=== PATIENT | female | born 1995 | race Caucasian/White ===

== ENCOUNTER 2018-08-15 09:44 | Outpatient (CLI) | payer OTHER, SELFPAY ==
[2018-08-15 11:22] LABS: FREE T4 0.95 ng/dL (0.76-1.46); TSH 1.49 uIU/mL (0.358-3.74)
[2018-08-15 12:08] LABS: Vitamin B12 671 pg/mL (193-986)
[2018-08-15 22:26] LABS: T3, Total 140 ng/dl (97-169)
[2018-08-17 00:07] LABS: Vitamin D 25 Total 34.9 ng/ml (30-100)
== END 2018-08-15 10:04 ==
PROVIDERS: PCP Nurse Practitioner; Visit Provider Nurse Practitioner Family
DX: F31.81 Bipolar II disorder (principal); Z79.899 Other long term (current) drug therapy; E03.9 Hypothyroidism, unspecified; Z13.21 Encounter for screening for nutritional disorder
CPT/HCPCS: 36415; 82306; 82607; 84439; 84443; 84480

== ENCOUNTER 2018-10-01 13:46 | Outpatient (REF) | payer OTHER, SELFPAY | END 2018-10-01 14:06 | LOC: LBN 13:46 | PROVIDERS: PCP Nurse Practitioner; Visit Provider Nurse Practitioner | DX: J06.9 Acute upper respiratory infection, unspecified (principal) | CPT/HCPCS: 87449 ==

== ENCOUNTER 2018-11-14 08:57 | Outpatient (CLI) | payer OTHER, SELFPAY ==
[2018-11-14 09:55] LABS: FREE T4 0.89 ng/dL (0.76-1.46)
== END 2018-11-14 09:17 ==
PROVIDERS: PCP Nurse Practitioner; Visit Provider Nurse Practitioner Women's Health
DX: O99.281 Endocrine, nutritional and metabolic diseases complicating pregnancy, first trimester (principal); E03.9 Hypothyroidism, unspecified
CPT/HCPCS: 36415; 84439; 84443

== ENCOUNTER 2018-11-23 12:39 | Outpatient (CLI) | payer OTHER, SELFPAY | END 2018-11-23 12:59 | PROVIDERS: PCP Nurse Practitioner; Visit Provider Advanced Practice Midwife | DX: Z34.90 Encounter for supervision of normal pregnancy, unspecified, unspecified trimester (principal); R10.9 Unspecified abdominal pain | CPT/HCPCS: 36415; 86850; 86900; 86901; 84702 ==

== ENCOUNTER 2018-12-04 15:15 | Outpatient (CLI) | payer OTHER, SELFPAY ==
[2018-12-04 15:57] LABS: Abs Immature Grans 0.01 k/cumm (0.0-0.09); Absolute Basophil Count 0.02 k/cumm (0.0-0.2); Absolute Eosinophil Count 0.03 k/cumm (0.0-0.7); Absolute Lymphocyte Count 1.84 k/cumm (1.2-3.4); Absolute Monocyte Count 0.33 k/cumm (0.11-0.7); Absolute Neutrophil Count 5.94 k/cumm (1.2-6.7); Basophils % 0.2; Eosinophils % 0.4; HCT 37.8 % (36.0-46.0); HGB 13.4 g/dL (12.0-15.5); Immature Grans % 0.1; Lymphocytes % 22.5; Mean Corp. HGB Concentration 35.4 g/dL (32.0-36.0); Mean Corpuscular Hemoglobin 27.9 pg (27.0-33.0); Mean Corpuscular Volume 78.8 fL (80-95); Mean Platelet Volume 10.9 fL (8.0-11.0); Neutrophils % 72.8; Platelet Count 248 x1000/uL (130-400); RBC Distribution Width 13.6 % (11.7-14.6); White Blood Cell Count 8.17 k/cumm (4.4-10.8)
[2018-12-04 16:45] LABS: TSH (W/Ref FT4) 1.68 uIU/mL (0.358-3.74)
[2018-12-06 10:32] LABS: Hepatitis C Ab w Rflx HCV PCR Negative (NEGAT)
[2018-12-06 11:26] LABS: HIV-1/2 Ag & Ab Screen Negative (NEGAT)
[2018-12-06 11:33] LABS: Hepatitis B Surface Ag Negative (NEGAT)
[2018-12-06 12:42] LABS: Varicella IgG Antibody Positive
[2018-12-06 13:02] LABS: Rubella IgG Ab (UVM) Positive
[2018-12-06 13:06] LABS: Syphilis Serology (RPR) Negative (Negative)
== END 2018-12-04 15:35 ==
PROVIDERS: PCP Nurse Practitioner; Visit Provider Advanced Practice Midwife
DX: Z34.91 Encounter for supervision of normal pregnancy, unspecified, first trimester (principal); Z01.84 Encounter for antibody response examination; Z11.4 Encounter for screening for human immunodeficiency virus [HIV]; Z11.59 Encounter for screening for other viral diseases
CPT/HCPCS: 36415; 80055; 86787; 86803; 86850; 86900; 86901; 87340; 87389; 84443; 86592; 86762

== ENCOUNTER 2018-12-04 16:10 | Outpatient (REF) | payer OTHER, SELFPAY ==
--- NOTE | 2018-12-04 14:00 | PAPFT_PTH ---
PATIENT: Tanisha Goodwin LOC: [facility] U#:[id number] AGE/SX: 23/F ROOM: RE12/04/[address]: Jane Norris CNM : 1995 BED: DIS: 12/04/2018 SPEC #: [id number] RECD: 12/04/18 17:43 STATUS: MIKE ASHRAF #: [id number] MARIANNA: 12/04/18 14:[address]: Jane Norris DEPT: [facility] Cytology RECD BY: Hailey Nelson ENTERED: 12/04/18 17:44 SP TYPE: PAPFT BALAJI DR: Loida Huang APRN Tissues: 1 - CX/ENDOCX FOR PAP SMEARS Procedures: PAP THIN PREP/UVM Screening Comments: [id number]
[2018-12-04 17:51] LABS: *AMPHETAMINES SCREEN URINE Negative (Negative); *BARBITURATES SCREEN URINE Negative (Negative); *BENZODIAZEPINES SCREEN URINE Negative (Negative); Cannabinoids THC Negative (Negative); Cocaine Screen,Urine Negative (Negative); METHADONE URINE SCREEN Negative (Negative); OPIATES URINE SCREEN Negative (Negative)
[2018-12-04 17:52] LABS: Tricyclic Antidepressants Negative (Negative)
[2018-12-06 14:30] LABS: Chlamydia Result Negative; GC Result Negative; Specimen Description CERVIX
[2018-12-08 17:08] LABS: Buprenorphine Negative; Norbuprenorphine Negative
== END 2018-12-04 16:30 ==
LOC: LBN 16:10
PROVIDERS: PCP Nurse Practitioner; Visit Provider Advanced Practice Midwife
DX: Z34.91 Encounter for supervision of normal pregnancy, unspecified, first trimester (principal); Z11.3 Encounter for screening for infections with a predominantly sexual mode of transmission; Z12.4 Encounter for screening for malignant neoplasm of cervix
CPT/HCPCS: 80307; 87491; 87591; 88142

== ENCOUNTER 2019-01-24 09:10 | Outpatient (CLI) | payer OTHER, SELFPAY ==
[2019-01-24 10:58] LABS: FREE T4 1.21 ng/dL (0.76-1.46); TSH 1.71 uIU/mL (0.358-3.74)
[2019-01-25 17:38] LABS: Cigarette smoking status non-smoker; GA used in risk estimate Dates estimate; INHIBIN 327 pg/mL; IVF Pregnancy No; Initial or repeat testing Initial testing; Insulin dependent diabetes No; Maternal Weight 179 lbs; Number of Fetuses 1; Physician Phone Number 802-748-7300; Prev Down(T21)/Trisomy Pregnan No; Prev Pregnancy w/NTD No; RECOMMENDED FOLLOW UP None.; Results Summary Normal risk; hCG, TOTAL 113.3 IU/mL; hCG, TOTAL MoM 3.25 MoM; uE3 0.78 ng/mL
== END 2019-01-24 09:30 ==
PROVIDERS: PCP Nurse Practitioner; Visit Provider Advanced Practice Midwife
DX: E03.9 Hypothyroidism, unspecified (principal); Z34.91 Encounter for supervision of normal pregnancy, unspecified, first trimester; Z36.89 Encounter for other specified antenatal screening
CPT/HCPCS: 81511; 84439; 84443

== ENCOUNTER 2019-01-27 15:10 | Emergency (ER) | payer OTHER, SELFPAY ==
[2019-01-27 15:14] VITALS: BP 115/70; PULSE 108; RESP 20; TEMP 36.7; O2SAT 97
--- NOTE | 2019-01-27 15:52 | W.ED.GENAD ---
Discharge Plan Disposition Patient Disposition: HOME Condition: Fair Discharge Details Chief Complaint: BILINGUAL LEGAL ASSISTANT Clinical Impression: Vaginal bleeding before 22 weeks gestation Primary Care Provider: Loida Huang ED Provider: Tiffanie King Home Meds and New Rx's Prescriptions: Continued levothyroxine [Synthroid] 50 mcg tablet 50 mcg PO DAILY Qty: 90 RF: 3 prenat.vits,kenn,aat-mljo-bwegl tablet 1 tab PO DAILY Qty: 90 RF: 6 sertraline 50 mg tablet 50 mg PO DAILY RF: 0 Discharge Instructions Additional Instructions: Your exam and heart rate are reassuring today. Please encourage hydration. Do not place anything intravaginally. Follow-up with BILINGUAL LEGAL ASSISTANT next week for reevaluation. If you develop cramping, fever/chills, increased bleeding or other new/worsening symptoms please seek care urgently once again. Referrals: Brooke Morales MD [ [facility] STAFF PHYSICIAN] - Discharge Data Discharge Date/Time-TO BE ENTERED AT DEPARTURE: 01/27/19 16:28 Medical Decision Making Patient 21-year-old female presenting today for bleeding in second trimester of . Patient is currently 16 weeks gestation, confirmed with initial dating ultrasound. Patient reports that she had bleeding last week that only lasted a few hours. Was evaluated by BILINGUAL LEGAL ASSISTANT who advised nothing intravaginally for the next week. However, patient did have intercourse today after which she began bleeding. She reports that she has had the current pattern for the past hour, there is a thin line of blood noted on the pad currently. She reports a prior to that, she had placed 2 pieces of toilet paper in her underwear and went through this x2. On exam, her abdomen is soft and nontender. She does not have a large quantity of blood noted. heart rate [address] Watt. He advised vaginal rest. He reiterated with the patient is been told last week to not insert anything vaginally. Patient will follow up with them this week. She and I discussed strict return precautions, particular she has worsening bleeding. All of her questions and concerns were addressed and she is in agreement this plan.. HPI General Mode of arrival: ambulatory. Date/Time Provider Initiated Documentation: 01/27/19 15:51. Limitations to Documentation: no limitations. Information obtained by: patient and RN notes reviewed. HPI Narrative: Patient is a 23 year old female, accompanied by significant other, presenting with concern for vaginal bleeding at 16 week gestation. States that bleeding began this afternoon after intercourse. States she had bleeding 5 days ago and was evaluated by MANAGER OF SUSTAINABILITY who advised abstaining from vaginal intercourse x 1 week. Denies cramping. G1PO. No fevers/chills. Had confirmatory US showing intravaginal fetus. Related Data Home Medications Medication Instructions Recorded Confirmed 1 tab PO DAILY #90 tab 11/08/18 01/24/19 vitamin,calcium,jkjkroha-zkxo-aoqzz acid tablet levothyroxine 50 mcg tablet 50 mcg PO DAILY #90 tab 12/27/18 01/24/19 sertraline 50 mg tablet 50 mg PO DAILY tab 01/15/19 01/24/19 Previous Rx's Medication Instructions Recorded 1 tab PO DAILY #90 tab 11/08/18 vitamin,calcium,zkvjrpts-aqqd-jqluy acid tablet levothyroxine 50 mcg tablet 50 mcg PO DAILY #90 tab 12/27/18 Allergies Allergy/AdvReac Type Severity Reaction Status Date / Time lamotrigine [From Lamictal] AdvReac Skin Rash Verified 01/24/19 08:10 General Stated Complaint: BILINGUAL LEGAL ASSISTANT OLIVE: 3 Review of Systems Constitutional Reports as per HPI, Denies chills, Reports fatigue, Denies fever(s) and Denies headache(s) ENT Denies headache(s) Cardiovascular Reports as per HPI, Denies chest pain and Denies dyspnea Respiratory Reports as per HPI, Denies cough and Denies dyspnea Gastrointestinal Reports as per HPI, Denies abdominal pain, Denies loose stools, Denies nausea and Denies vomiting Genitourinary Reports as per HPI and Reports abnormal vaginal bleeding Musculoskeletal Reports as per HPI and Denies back pain Integumentary/Breasts Reports as per HPI and Denies rash Neurologic Reports as per HPI and Denies headache(s) Endocrine Reports fatigue [facility] Medical History Seasonal affective disorder (Chronic) Bipolar 1 disorder (Chronic) Bipolar disorder (Chronic) Vitamin B12 deficiency (non anemic) (Acute) Hyperglycemia (Acute) Irritable bowel syndrome (Chronic) Depressive disorder (Acute) Anxiety (Chronic) Hypothyroidism (Chronic) Insomnia (Acute) Ovarian cyst (Acute) Surgical History History of removal of ovarian cyst (Acute) Social History Smoking/Tobacco Use Status: Former Tobacco Use Alcohol Intake: former Details: mixed drinks (rum with mountain dew) Substance use type: does not use Caregiver/Support person: No Housing: apartment Communication Needs: None 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 [employer] What type of physical activity do you participate in: walking Seatbelt use: always Helmet use: Yes Drive intox or ride w/intox tour driver: No Working smoke detector in home: Yes Fire extinguisher in home: No Carbon monox detector in home: Yes Firearms in home: No Do you feel safe at home: Yes Do you feel safe in your relationship?: Yes Female Reproductive History Menstrual control method: progestin IUCD History History 1 Para 0 Hx # Term Pregnancies 0 Multiple births 0 Hx # Pregnancies 0 Ectopic pregnancies 0 AB induced 0 Hx Number of Living Children 0 AB spontaneous 0 Exam Const General: cooperative, healthy appearing, comfortable, no acute distress and well developed Nutritional Appearance: well nourished and overweight Orientation: alert and awake HENMT Head: normal to inspection Mouth: moist mucous membranes Resp Effort & Inspection: normal respiratory effort, able to speak in complete sentences and no respiratory distress Auscultation: clear to auscultation bilaterally, no rales, no rhonchi and no wheezes Cardio Rate: regular rate Rhythm: regular rhythm Heart Sounds: S1 normal and S2 normal GI Inspection: normal to inspection and non-distended Palpation: soft, no hepatosplenomegaly, not firm, no guarding, not rigid and nontender Percussion: normal to percussion Auscultation: normal bowel sounds Back/Spine/Pelvis Back: no CVA tenderness Skin General skin exam: no rashes or lesions noted Trauma: no lacerations or abrasions Neuro General: alert and awake Cognition: normal cognition Speech: speech normal Gait: normal gait Extrem General: no pedal edema, no calf tenderness and normal gait Psych Appearance: grossly normal and well kempt Mental Status: mental status grossly normal Speech and Movement: speech and movement normal Course Vital Signs Temperature 36.7 C 01/27/19 15:14 Pulse 108 H 01/27/19 15:14 Respiratory Rate 20 01/27/19 15:14 Blood Pressure 115/70 01/27/19 15:14 Pulse Oximetry 97 01/27/19 15:14 Temperature 36.7 C 01/27/19 15:14 Temperature Source Temporal Artery Scan 01/27/19 15:14 Pulse 108 H 01/27/19 15:14 Respiratory Rate 20 01/27/19 15:14 Respiratory Effort Non-Labored 01/27/19 15:25 Blood Pressure 115/70 01/27/19 15:14 Pulse Oximetry 97 01/27/19 15:14 Oxygen Delivery Method Room Air 01/27/19 15:14 Oxygen Flow Rate 0 01/27/19 15:14 Pain Level 0 01/27/19 15:22
--- NOTE | 2019-01-27 16:05 | ED.GENADUL_ITS ---
Discharge Plan Disposition Patient Disposition: HOME Condition: Fair Discharge Details Chief Complaint: GROUNDSKEEPER PORTER Clinical Impression: Vaginal bleeding before 22 weeks gestation Primary Care Provider: Loida Huang ED Provider: Tiffanie King Home Meds and New Rx's Prescriptions: Continued levothyroxine [Synthroid] 50 mcg tablet 50 mcg PO DAILY Qty: 90 RF: 3 prenat.vits,kenn,rgo-cnmi-rjlwk tablet 1 tab PO DAILY Qty: 90 RF: 6 sertraline 50 mg tablet 50 mg PO DAILY RF: 0 Discharge Instructions Additional Instructions: Your exam and heart rate are reassuring today. Please encourage hydration. Do not place anything intravaginally. Follow-up with GROUNDSKEEPER PORTER next week for reevaluation. If you develop cramping, fever/chills, increased bleeding or other new/worsening symptoms please seek care urgently once again. Referrals: Brooke Morales MD [ [facility] STAFF PHYSICIAN] - Discharge Data Discharge Date/Time-TO BE ENTERED AT DEPARTURE: 01/27/19 16:28 Medical Decision Making Patient 21-year-old female presenting today for bleeding in second trimester of . Patient is currently 16 weeks gestation, confirmed with initial dating ultrasound. Patient reports that she had bleeding last week that only l asted a few hours. Was evaluated by GROUNDSKEEPER PORTER who advised nothing intravaginally for the next week. However, patient did have intercourse today after which she began bleeding. She reports that she has had the current pattern for the past hour, there is a thin line of blood noted on the pad currently. She reports a prior to that, she had placed 2 pieces of toilet paper in her underwear and went through this x2. On exam, her abdomen is soft and nontender. She does not have a large quantity of blood noted. heart rate [address] Watt. He advised vaginal rest. He reiterated with the patient is been told last week to not insert anything vaginally. Patient will follow up with them this week. She and I discussed strict return precautions, particular she has worsening bleeding. All of her questions and concerns were addressed and she is in agreement this plan.. HPI General Mode of arrival: ambulatory . Date/Time Provider Initiated Documentation: 01/27/19 15:51 . Limitations to Documentation: no limitations . Information obtained by: patient and RN notes reviewed . HPI Narrative: Patient is a 23 year old female, accompanied by significant other, presenting with concern for vaginal bleeding at 16 week gestation. States that bleeding began this afternoon after intercourse. States she had bleeding 5 days ago and was evaluated by TEMPORARY RECEPTIONIST who advised abstaining from vaginal intercourse x 1 week. Denies cramping. G1PO. No fevers/chills. Had confirmatory US showing intravaginal fetus. Related Data Home Medications Medication Instructions Recorded Confirmed 1 tab PO DAILY #90 tab 11/08/18 01/24/19 vitamin,calcium,rtvhkdwq-olgv-hnlck acid tablet levothyroxine 50 mcg tablet 50 mcg PO DAILY #90 tab 12/27/18 01/24/19 sertraline 50 mg tablet 50 mg PO DAILY tab 01/15/19 01/24/19 Previous Rx's Medication Instructions Recorded 1 tab PO DAILY #90 tab 11/08/18 vitamin,calcium,zstsxeng-qsru-zdymw acid tablet levothyroxine 50 mcg tablet 50 mcg PO DAILY #90 tab 12/27/18 Allergies Allergy/AdvReac Type Severity Reaction Status Date / Time lamotrigine [From Lamictal] AdvReac Skin Rash Verified 01/24/19 08:10 General Stated Complaint: GROUNDSKEEPER PORTER OLIVE: 3 Review of Systems Constitutional Reports as per HPI, Denies chills, Reports fatigue, Denies fever(s) and Denies headache(s) ENT Denies headache(s) Cardiovascular Reports as per HPI, Denies chest pain and Denies dyspnea Respiratory Reports as per HPI, Denies cough and Denies dyspnea Gastrointestinal Reports as per HPI, Denies abdominal pain, Denies loose stools, Denies nausea and Denies vomiting Genitourinary Reports as per HPI and Reports abnormal vaginal bleeding Musculoskeletal Reports as per HPI and Denies back pain Integumentary/Breasts Reports as per HPI and Denies rash Neurologic Reports as per HPI and Denies headache(s) Endocrine Reports fatigue [facility] Medical History Seasonal affective disorder (Chronic) Bipolar 1 disorder (Chronic) Bipolar disorder (Chronic) Vitamin B12 deficiency (non anemic) (Acute) Hyperglycemia (Acute) Irritable bowel syndrome (Chronic) Depressive disorder (Acute) Anxiety (Chronic) Hypothyroidism (Chronic) Insomnia (Acute) Ovarian cyst (Acute) Surgical History History of removal of ovarian cyst (Acute) Social History Smoking/Tobacco Use Status: Former Tobacco Use Alcohol Intake: former Details: mixed drinks (rum with mountain dew) Substance use type: does not use Caregiver/Support person: No Housing: apartment Communication Needs: None 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 [employer] What type of physical activity do you participate in: walking Seatbelt use: always Helmet use: Yes Drive intox or ride w/intox helper/driver: No Working smoke detector in home: Yes Fire extinguisher in home: No Carbon monox detector in home: Yes Firearms in home: No Do you feel safe at home: Yes Do you feel safe in your relationship?: Yes Female Reproductive History Menstrual control method: progestin IUCD History History 1 Para 0 Hx # Term Pregnancies 0 Multiple births 0 Hx # Pregnancies 0 Ectopic pregnancies 0 AB induced 0 Hx Number of Living Children 0 AB spontaneous 0 Exam Const General: cooperative, healthy appearing, comfortable, no acute distress and well developed Nutritional Appearance: well nourished and overweight Orientation: alert and awake HENMT Head: normal to inspection Mouth: moist mucous membranes Resp Effort & Inspection: normal respiratory effort, able to speak in complete sentences and no respiratory distress Auscultation: clear to auscultation bilaterally, no rales, no rhonchi and no wheezes Cardio Rate: regular rate Rhythm: regular rhythm Heart Sounds: S1 normal and S2 normal GI Inspection: normal to inspection and non-distended Palpation: soft, no hepatosplenomegaly, not firm, no guarding, not rigid and nontender Percussion: normal to percussion Auscultation: normal bowel sounds Back/Spine/Pelvis Back: no CVA tenderness Skin General skin exam: no rashes or lesions noted Trauma: no lacerations or abrasions Neuro General: alert and awake Cognition: normal cognition Speech: speech normal Gait: normal gait Extrem General: no pedal edema, no calf tenderness and normal gait Psych Appearance: grossly normal and well kempt Mental Status: mental status grossly normal Speech and Movement: speech and movement normal Course Vital Signs Temperature 36.7 C 01/27/19 15:14 Pulse 108 H 01/27/19 15:14 Respiratory Rate 20 01/27/19 15:14 Blood Pressure 115/70 01/27/19 15:14 Pulse Oximetry 97 01/27/19 15:14 Temperature 36.7 C 01/27/19 15:14 Temperature Source Temporal Artery Scan 01/27/19 15:14 Pulse 108 H 01/27/19 15:14 Respiratory Rate 20 01/27/19 15:14 Respiratory Effort Non-Labored 01/27/19 15:25 Blood Pressure 115/70 01/27/19 15:14 Pulse Oximetry 97 01/27/19 15:14 Oxygen Delivery Method Room Air 01/27/19 15:14 Oxygen Flow Rate 0 01/27/19 15:14 Pain Level 0 01/27/19 15:22
== END 2019-01-27 16:28 | disposition home or self-care (01) ==
PROVIDERS: Emergency Provider Physician Assistant; PCP Nurse Practitioner
DX: O20.9 Hemorrhage in early pregnancy, unspecified (principal); Z3A.16 16 weeks gestation of pregnancy
CPT/HCPCS: 99283

== ENCOUNTER 2019-02-12 00:41 | Outpatient (CLI) | payer OTHER, SELFPAY ==
--- NOTE | 2019-02-12 09:30 | DI.US_ITS ---
SYMPTOMS/DIAGNOSIS: SURVEY, Z34.90 OB ULTRASOUND: Predicted Gestational Age: Indication/History: 18+2 Wks Range: 17+2 to 19+2 Prior US done on: Determined by: First US LMP History EDC by prior US: 07/14/19 For multiple gestations: Baby PLACENTA: Grade: I Location: X Anterior Posterior PRESENTATION: RT LT LOW LYING PREVIA Cephalic X Trans (Head RT LT ) Varied Breech BIOMETRY: Anatomy Identified: BPD: mm wks 4 chamber Heart X Heart Rate 160 BPM HC: mm wks LVOT X Post Fossa X AC: 124 mm 18 wks RVOT X Ventricles X FL: 26 mm 18 wks Stomach X Nose X Bladder X Lips X Cisterna Magna: 2.4 mm CI: Kidneys X Palate X Cerebellum: 1.93 mm 3- vessel cord X Spine X EFW: grms % Cord Insertion X NS= not seen Composite Age (US) wks Many abnormalities cannot be diagnosed. A normal exam does not exclude congenital abnormality. EDC by US Amniotic Fluid Index: Normal RUQ: LUQ: RLQ: LLQ: Total: cm Biophysical Profile: Score 0/2 SERG (>2cm) Respirations (>30 sec) Body flexion/extension Extremity flexion/extension TOTAL SCORE COMMENTS: The placenta is anterior. The fetus is in cephalic position. The head was difficult to visualize and adequate measurements were unable to be obtained. The abdominal circumference and femur length correspond to 18 weeks. The amount of amniotic fluid appears normal. Aside from the head, no abnormalities are identified. The patient is scheduled to return on January, for reevaluation of the head.
== END 2019-02-12 01:01 ==
PROVIDERS: PCP Nurse Practitioner; Visit Provider Advanced Practice Midwife
DX: Z34.92 Encounter for supervision of normal pregnancy, unspecified, second trimester (principal)
CPT/HCPCS: 76815

== ENCOUNTER 2019-02-18 01:43 | Outpatient (CLI) | payer OTHER, SELFPAY ==
--- NOTE | 2019-02-18 11:00 | DI.US_ITS ---
SYMPTOM/DIAGNOSIS: F/U TO SURVEY, CHECK HEAD OB ULTRASOUND: Comparison is made with 12 February 2019. The fetus is in breech position. The placenta is anterior. The amount of amniotic fluid appears normal. The brain and face were better seen on today's exam and no abnormalities are visible. Predicted Gestational Age: Indication/History: 19 +1 Wks Range: 18 +1 to 20 +1 Prior US done on: Determined by: First US LMP History EDC by prior US: 07/14/19 For multiple gestations: Baby PLACENTA: Grade: 0-I Location: Anterior PRESENTATION: RT LT LOW LYING PREVIA Cephalic Trans (Head RT LT ) Varied Breech XX BIOMETRY: Anatomy Identified: BPD: 42 mm 18 N+4 wks 4 chamber Heart Heart Rate 147 BPM HC: 160 mm 18 +6 wks LVOT Post Fossa XX AC: mm wks RVOT Ventricles XX FL: mm wks Stomach Nose XX Bladder Lips XX Cisterna Magna: 4.1 mm CI: 78 Kidneys Palate Cerebellum: 1.85 mm 3 vessel cord Spine EFW: grms % Cord Insertion NS= not seen Composite Age (US) wks Many abnormalities cannot be diagnosed. A normal exam does not exclude congenital abnormality. EDC by US Amniotic Fluid Index: Normal COMMENTS: RUQ: LUQ: RLQ: LLQ: Total: cm Biophysical Profile: Score 0/2 SERG (>2cm) Respirations (>30 sec) Body flexion/extension Extremity flexion/extension TOTAL SCORE
== END 2019-02-18 02:03 ==
PROVIDERS: PCP Nurse Practitioner; Visit Provider Advanced Practice Midwife
DX: Z34.92 Encounter for supervision of normal pregnancy, unspecified, second trimester (principal); Z36.2 Encounter for other antenatal screening follow-up
CPT/HCPCS: 76815

== ENCOUNTER 2019-02-21 12:06 | Outpatient (CLI) | payer OTHER, SELFPAY ==
[2019-02-27 15:12] LABS: Result Summary NEGATIVE; Specimen WB Whole Blood
[2019-03-01 15:24] LABS: Specimen WB Whole Blood
== END 2019-02-21 12:26 ==
PROVIDERS: PCP Nurse Practitioner; Visit Provider Advanced Practice Midwife
DX: Z34.92 Encounter for supervision of normal pregnancy, unspecified, second trimester (principal); Z36.89 Encounter for other specified antenatal screening
CPT/HCPCS: 36415; 81329; 81220

== ENCOUNTER 2019-03-12 12:59 | Outpatient (CLI) | payer OTHER, SELFPAY ==
[2019-03-12 14:25] LABS: TSH 1.66 uIU/mL (0.358-3.74)
== END 2019-03-12 13:19 ==
PROVIDERS: PCP Nurse Practitioner; Visit Provider Advanced Practice Midwife
DX: E03.9 Hypothyroidism, unspecified (principal)
CPT/HCPCS: 36415; 84436; 84443

== ENCOUNTER 2019-04-23 08:40 | Outpatient (CLI) | payer OTHER, SELFPAY ==
[2019-04-23 10:03] LABS: HCT 33.7 % (36.0-46.0); HGB 11.6 g/dL (12.0-15.5); Mean Corp. HGB Concentration 34.4 g/dL (32.0-36.0); Mean Corpuscular Hemoglobin 28.7 pg (27.0-33.0); Mean Corpuscular Volume 83.4 fL (80-95); Mean Platelet Volume 10.4 fL (8.0-11.0); Platelet Count 203 x1000/uL (130-400); RBC 4.04 m/cumm (4.00-5.20); RBC Distribution Width 13.7 % (11.7-14.6); White Blood Cell Count 7.48 k/cumm (4.4-10.8)
[2019-04-23 10:10] LABS: Glucose,1 Hr (Glucola) 125 mg/dL (80-140)
[2019-04-23 11:16] LABS: TSH (W/Ref FT4) 2.47 uIU/mL (0.36-3.74)
== END 2019-04-23 09:00 ==
PROVIDERS: Advanced Practice Midwife; PCP Nurse Practitioner; Visit Provider Advanced Practice Midwife
DX: Z34.93 Encounter for supervision of normal pregnancy, unspecified, third trimester (principal)
CPT/HCPCS: 36415; 82950; 85027; 84443

== ENCOUNTER 2019-05-08 00:48 | Outpatient (CLI) | payer OTHER, SELFPAY ==
--- NOTE | 2019-05-08 12:18 | DI.US_ITS ---
SYMPTOMS/DIAGNOSIS: GROWTH AND AMNIOTIC FLUID INDEX, 2ND AND 3RD TRIMESTER BLEEDING, Z34.90 OB ULTRASOUND: Predicted Gestational Age: Indication/History: 30+3 Wks Range: 29+3 to 31+3 Prior US done on: Determined by: First US LMP History EDC by prior US: 07/14/19 For multiple gestations: Baby PLACENTA: Grade: I-II Location: X Anterior Posterior PRESENTATION: RT X LT LOW LYING PREVIA X Cephalic Trans (Head RT LT ) Varied Breech BIOMETRY: Anatomy Identified: BPD: 81 mm 32+2 wks 4 chamber Heart Heart Rate 158 BPM HC: 294 mm 32+3 wks LVOT Post Fossa AC: 283 mm 32+2 wks RVOT Ventricles FL: 60 mm 31+1 wks Stomach Nose Bladder Lips Cisterna Magna: mm CI: 82 Kidneys Palate Cerebellum: mm 3 vessel cord Spine EFW: 1873 grms 87% Cord Insertion NS= not seen Composite Age (US) 32 wks Many abnormalities cannot be diagnosed. A normal exam does not exclude congenital abnormality. EDC by US: 07/03/19 Amniotic Fluid Index: Normal COMMENTS: Placental tip 7.8 cm from internal os the cervix. RUQ: 7.09 LUQ: 6.17 RLQ: 1.57 LLQ: 2.60 Total: 17.4 cm Biophysical Profile: Score 0/2 SERG (>2cm) Respirations (>30 sec) Body flexion/extension Extremity flexion/extension TOTAL SCORE RADIOLOGIST COMMENTS: Comparison is made with January,. The fetus is in cephalic position. The placenta is anterior. There is no evidence of placenta previa. The biometric measurements correspond to 32 weeks, which is slightly above the normal range. The estimated weight is 1873 g, corresponding to the 87th percentile. The amniotic fluid index is normal at 17.4. IMPRESSION: Appropriate interval growth. No abnormality of the placenta.
== END 2019-05-08 01:08 ==
PROVIDERS: PCP Nurse Practitioner; Visit Provider Advanced Practice Midwife
DX: O46.93 Antepartum hemorrhage, unspecified, third trimester (principal)
CPT/HCPCS: 76815

== ENCOUNTER 2019-06-18 19:05 | Outpatient (REF) | payer OTHER, SELFPAY ==
[2019-06-18 15:38] LABS: *AMPHETAMINES SCREEN URINE Negative (Negative); *BARBITURATES SCREEN URINE Negative (Negative); *BENZODIAZEPINES SCREEN URINE Negative (Negative); Cannabinoids THC Negative (Negative); Cocaine Screen,Urine Negative (Negative); METHADONE URINE SCREEN Negative (Negative); OPIATES URINE SCREEN Negative (Negative)
[2019-06-18 15:40] LABS: Tricyclic Antidepressants Negative (Negative)
[2019-06-30 07:48] LABS: Buprenorphine Negative
== END 2019-06-18 19:25 ==
LOC: LBN 19:05
PROVIDERS: PCP Nurse Practitioner; Visit Provider Advanced Practice Midwife
DX: Z34.93 Encounter for supervision of normal pregnancy, unspecified, third trimester (principal); Z36.85 Encounter for antenatal screening for Streptococcus B
CPT/HCPCS: 80307; 87081

== ENCOUNTER 2019-06-27 18:16 | Emergency (ER) | payer OTHER, SELFPAY ==
--- NOTE | 2019-06-27 18:21 | ED.GENADUL_ITS ---
Discharge Plan Disposition Patient Disposition: HOME Condition: Improving Discharge Details Clinical Impression: Laceration of left thumb Primary Care Provider: Loida Huang ED Provider: Asher Barker Home Meds and New Rx's Prescriptions: Continued levothyroxine [Synthroid] 50 mcg tablet 50 mcg PO DAILY Qty: 90 RF: 3 prenat.vits,kenn,ytt-bvnx-bwbaf tablet 1 tab PO DAILY Qty: 90 RF: 6 Blood Builder tablet 1 tab PO DAILY Qty: 60 RF: 0 sertraline 50 mg tablet 50 mg PO DAILY RF: 0 Discharge Instructions Instructions: Laceration (ED) Additional Instructions: Leave dressing in place for 48 hours. Then may replace with Band-Aid. Steri-Strips and tissue adhesive will wear off in approximately 7 to 10 days time. Return to the emergency department for any acute concern. Medical Decision Making 23-year-old female with small laceration to left thumb. Tetanus up-to-date. She is in the third trimester but no other complaints. Repaired with tissue adhesive and Steri-Strips. She stable and improved. Appropriate discharged home. HPI General Mode of arrival: ambulatory . Date/Time Provider Initiated Documentation: 06/27/19 18:21 . Limitations to Documentation: no limitations . Information obtained by: patient . History of Present Illness 23 year old F presents to the emergency department with the chief complaint of Left thumb laceration, bleeding controlled, described as mild, Quality is described as constant, and is localized to the left and upper extremity. Patient reports no radiation. Patient started experiencing this minute(s) and it has been constant. No relieving factors improve symptom(s), No exacerbating factors reported . Patient notes no other symptoms.. Patient did receive the following treatments prior to arrival, none Related Data Home Medications Medication Instructions Recorded Confirmed prenat.vits,kenn,ioa-lxca-xdiys 1 tab PO DAILY #90 tab 11/08/18 06/18/19 levothyroxine 50 mcg tablet 50 mcg PO DAILY #90 tab 12/27/18 06/18/19 sertraline 50 mg tablet 50 mg PO DAILY tab 01/15/19 06/18/19 Blood Builder 1 tab PO DAILY #60 tab 04/23/19 06/18/19 Previous Rx's Medication Instructions Recorded prenat.vits,kenn,ith-jkhr-mlgnl 1 tab PO DAILY #90 tab 11/08/18 levothyroxine 50 mcg tablet 50 mcg PO DAILY #90 tab 12/27/18 Blood Builder 1 tab PO DAILY #60 tab 04/23/19 Allergies Allergy/AdvReac Type Severity Reaction Status Date / Time lamotrigine [From Lamictal] AdvReac Skin Rash Verified 06/25/19 11:39 General OLIVE: 3 Review of Systems Narrative: Third trimester . Tetanus up-to-date. No other complaints. [facility] Medical History Anxiety (Chronic) Bipolar 1 disorder (Chronic) Bipolar disorder (Chronic) 11/15/18 pt off mraylar due to pregnacy per Merari Bernal Depressive disorder (Acute) Hyperglycemia (Acute) Hypothyroidism (Chronic) diagnosed age 19 after she gained a lot of weight with one of her bipolar medication Insomnia (Acute) Irritable bowel syndrome (Chronic) Ovarian cyst (Acute) Seasonal affective disorder (Chronic) Vitamin B12 deficiency (non anemic) (Acute) Surgical History History of removal of ovarian cyst (Acute) Family History Paternal Grandfather Hypertension Father Hypercholesterolemia Hypertension Mother Thyroid disorder Hypertension Hypercholesterolemia Immunodeficiency disorder Maternal Grandmother Thyroid disorder Heart disease Paternal Grandmother Diabetes Depression Social History Smoking/Tobacco Use Status: Former Tobacco Use Alcohol Intake: former Details: mixed drinks (rum with mountain dew) Substance use type: does not use Caregiver/Support person: No Housing: apartment Communication Needs: None 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 [employer] What type of physical activity do you participate in: walking Seatbelt use: always Helmet use: Yes Drive intox or ride w/intox trash truck driver: No Working smoke detector in home: Yes Fire extinguisher in home: No Carbon monox detector in home: Yes Firearms in home: No Do you feel safe at home: Yes Do you feel safe in your relationship?: Yes Female Reproductive History Menstrual control method: progestin IUCD History History 1 Para 0 Hx # Term Pregnancies 0 Multiple births 0 Hx # Pregnancies 0 Ectopic pregnancies 0 AB induced 0 Hx Number of Living Children 0 AB spontaneous 0 Exam Narrative Exam Narrative: GEN: awake, alert, oriented 3. Pleasant, well groomed, inte ractive. HEAD: Normocephalic, atraumatic ENT: Mucous membranes moist, oropharynx unremarkable, External ear exam unremarkable EYES: PERRL, EOMI NECK: Full ROM, no WILLI, no menigismus ABDOMEN: Gravid EXT: Left thumb with 1 cm shallow laceration that does not penetrate through the depth of the dermis. This located on the lateral aspect of the thumb without involvement of the nailbed. Full ROM, no edema, no rash Neuro: Grossly normal neurologic exam, conversant, interactive. Psych: Speech fluent, thoughts congruent, affect normal
[2019-06-27 18:24] VITALS: BP 136/90; PULSE 109; RESP 16; TEMP 37.4; O2SAT 98
[2019-06-27 18:31] VITALS: BP 129/80
== END 2019-06-27 18:35 | disposition home or self-care (01) ==
PROVIDERS: Emergency Provider Emergency Medicine; PCP Nurse Practitioner
DX: S61.012A Laceration without foreign body of left thumb without damage to nail, initial encounter; W26.0XXA Contact with knife, initial encounter; Z3A.37 37 weeks gestation of pregnancy; Z33.1 Pregnant state, incidental
CPT/HCPCS: 12001

== ENCOUNTER 2019-07-07 10:39 | Observation (INO) | payer OTHER, BC, SELFPAY | END 2019-07-07 12:20 | disposition home or self-care (01) | PROVIDERS: Admitting Provider Advanced Practice Midwife; PCP Nurse Practitioner; Visit Provider Advanced Practice Midwife | DX: O47.1 False labor at or after 37 completed weeks of gestation (principal); Z03.71 Encounter for suspected problem with amniotic cavity and membrane ruled out; O99.343 Other mental disorders complicating pregnancy, third trimester; O99.283 Endocrine, nutritional and metabolic diseases complicating pregnancy, third trimester; F41.8 Other specified anxiety disorders; E03.9 Hypothyroidism, unspecified | CPT/HCPCS: G0378 ==

== ENCOUNTER 2019-07-10 11:14 | Outpatient (CLI) | payer OTHER, BC, SELFPAY ==
[2019-07-10 12:04] LABS: HCT 36.2 % (36.0-46.0); HGB 12.6 g/dL (12.0-15.5); Mean Corp. HGB Concentration 34.8 g/dL (32.0-36.0); Mean Corpuscular Hemoglobin 28.4 pg (27.0-33.0); Mean Corpuscular Volume 81.7 fL (80-95); Platelet Count 229 x1000/uL (130-400); RBC 4.43 m/cumm (4.00-5.20); RBC Distribution Width 14.4 % (11.7-14.6)
[2019-07-10 13:50] LABS: COMMENT (LAB VIEW ONLY) 34.18 mg/dL; Prot/Crea Ur Ratio 0.49
[2019-07-10 14:01] LABS: ALT 16 U/L (14-59); AST 14 U/L (15-37); Albumin 2.8 g/dL (3.4-5.0); Alkaline Phosphatase 146 U/L (46-116); Anion Gap 10.3 mmol/L (3-11); BUN 8 mg/dL (7-18); Bilirubin, Total 0.8 mg/dL (0.2-1.0); CO2 24.7 mmol/L (21.0-32.0); CREATININE 0.62 mg/dL (0.55-1.02); Chloride 103 mmol/L (98-107); Glucose 82 mg/dL (70-100); Potassium 4.4 mmol/L (3.5-5.1); Sodium 138 mmol/L (136-145); Total Protein 6.9 g/dL (6.4-8.2); Uric Acid 2.5 mg/dL (2.6-6.0)
== END 2019-07-10 11:34 ==
PROVIDERS: PCP Nurse Practitioner; Visit Provider Advanced Practice Midwife
DX: O14.93 Unspecified pre-eclampsia, third trimester (principal)
CPT/HCPCS: 36415; 80053; 85027; 82565; 84156; 84550

== ENCOUNTER 2019-07-11 14:04 | Outpatient (CLI) | payer OTHER, BC, SELFPAY | END 2019-07-11 14:24 | PROVIDERS: PCP Nurse Practitioner; Visit Provider Advanced Practice Midwife | DX: O10.013 Pre-existing essential hypertension complicating pregnancy, third trimester (principal); Z3A.39 39 weeks gestation of pregnancy | CPT/HCPCS: 59025 ==

== ENCOUNTER 2019-07-12 08:04 | Outpatient (CLI) | payer OTHER, BC, SELFPAY ==
[2019-07-13 08:56] LABS: PROTEIN 15.2 mg/dL (0.0-11.9)
[2019-07-13 08:57] LABS: TOTAL PROTEIN,URINE TIMED 402.8 mg/24hr (0.0-149.1); Total Volume 2650 ml
== END 2019-07-12 08:24 ==
PROVIDERS: PCP Nurse Practitioner; Visit Provider Advanced Practice Midwife
DX: O13.3 Gestational [pregnancy-induced] hypertension without significant proteinuria, third trimester (principal)
CPT/HCPCS: 81050; 84155

== ENCOUNTER 2019-07-13 08:20 | Outpatient (CLI) | payer OTHER, BC, SELFPAY | END 2019-07-13 08:40 | PROVIDERS: PCP Nurse Practitioner; Visit Provider Advanced Practice Midwife | DX: O10.013 Pre-existing essential hypertension complicating pregnancy, third trimester (principal); Z3A.39 39 weeks gestation of pregnancy | CPT/HCPCS: 59025 ==

== ENCOUNTER 2019-07-15 10:54 | Outpatient (CLI) | payer OTHER, BC, SELFPAY | END 2019-07-15 11:14 | PROVIDERS: PCP Nurse Practitioner; Visit Provider Advanced Practice Midwife | DX: O13.3 Gestational [pregnancy-induced] hypertension without significant proteinuria, third trimester (principal); O48.0 Post-term pregnancy; Z3A.40 40 weeks gestation of pregnancy | CPT/HCPCS: 59025 ==

== ENCOUNTER 2019-07-15 17:38 | Inpatient (IN) | payer OTHER, BC, SELFPAY ==
[2019-07-15 18:09] LABS: HCT 33.9 % (36.0-46.0); Mean Corp. HGB Concentration 35.4 g/dL (32.0-36.0); Mean Corpuscular Hemoglobin 28.7 pg (27.0-33.0); Mean Corpuscular Volume 81.1 fL (80-95); Platelet Count 232 x1000/uL (130-400); RBC 4.18 m/cumm (4.00-5.20); RBC Distribution Width 14.4 % (11.7-14.6); White Blood Cell Count 9.03 k/cumm (4.4-10.8)
[2019-07-16] MEDS: Levothyroxine 50 MCG TAB PO (08:33)
[2019-07-16] MEDS: Normal Saline Flush 10 ML SYR IVP (08:34)
[2019-07-16] MEDS: Lactated Ringers 1,000 ML 125 ML IV (08:37)
[2019-07-16] MEDS: Penicillin G POT. 5,000,000 UNITS in Normal Saline 100 ML 200 UNITS IVPB (10:25)
[2019-07-16] MEDS: Lidocaine 1% Multi-Dose 20 ML VIAL (18:09)
[2019-07-17] MEDS: Ibuprofen 600 MG TAB PO (04:05)
[2019-07-17] MEDS: Levothyroxine 50 MCG TAB PO (06:15)
[2019-07-17 07:48] LABS: HCT 32.2 % (36.0-46.0); HGB 10.8 g/dL (12.0-15.5); Mean Corp. HGB Concentration 33.5 g/dL (32.0-36.0); Mean Corpuscular Hemoglobin 27.8 pg (27.0-33.0); Mean Platelet Volume 10.7 fL (8.0-11.0); Platelet Count 214 x1000/uL (130-400); RBC 3.88 m/cumm (4.00-5.20); RBC Distribution Width 14.5 % (11.7-14.6); White Blood Cell Count 11.26 k/cumm (4.4-10.8)
[2019-07-17] MEDS: Sertraline 50 MG TAB PO (10:21)
[2019-07-18] MEDS: Levothyroxine 50 MCG TAB PO (06:03)
== END 2019-07-18 14:30 | disposition home or self-care (01) | DRG 807 ==
PROVIDERS: Admitting Provider Advanced Practice Midwife; PCP Nurse Practitioner; Visit Provider Advanced Practice Midwife
DX: O14.04 Mild to moderate pre-eclampsia, complicating childbirth (principal); Z37.0 Single live birth; O99.824 Streptococcus B carrier state complicating childbirth; O48.0 Post-term pregnancy; O76 Abnormality in fetal heart rate and rhythm complicating labor and delivery; O99.344 Other mental disorders complicating childbirth; Z3A.40 40 weeks gestation of pregnancy; O99.284 Endocrine, nutritional and metabolic diseases complicating childbirth; F41.8 Other specified anxiety disorders; F31.9 Bipolar disorder, unspecified; E03.9 Hypothyroidism, unspecified; Z62.810 Personal history of physical and sexual abuse in childhood
CPT/HCPCS: 36415; 85027; 86850; 86900; 86901; 59200; J2540; J3490

== ENCOUNTER 2019-10-22 12:19 | Outpatient (CLI) | payer BC, SELFPAY ==
[2019-10-22 12:42] LABS: HCT 40.2 % (36.0-46.0); HGB 13.8 g/dL (12.0-15.5); Mean Corp. HGB Concentration 34.3 g/dL (32.0-36.0); Mean Corpuscular Hemoglobin 26.4 pg (27.0-33.0); Mean Platelet Volume 10.2 fL (8.0-11.0); Platelet Count 292 x1000/uL (130-400); RBC 5.22 m/cumm (4.00-5.20); RBC Distribution Width 13.9 % (11.7-14.6); White Blood Cell Count 6.06 k/cumm (4.4-10.8)
[2019-10-22 13:34] LABS: HCG Qual (Serum) Negative
[2019-10-22 13:40] LABS: ALT 27 U/L (14-59); AST 18 U/L (15-37); Albumin 3.9 g/dL (3.4-5.0); Alkaline Phosphatase 114 U/L (46-116); Bilirubin, Direct 0.18 mg/dL (0.00-0.20); Bilirubin, Total 0.9 mg/dL (0.2-1.0); TSH 2.36 uIU/mL (0.36-3.74); Total Protein 7.5 g/dL (6.4-8.2)
== END 2019-10-22 12:39 ==
PROVIDERS: Obstetrics & Gynecology; PCP Nurse Practitioner; Visit Provider Obstetrics & Gynecology
DX: R11.0 Nausea (principal)
CPT/HCPCS: 36415; 80076; 85027; 84443; 84703

== ENCOUNTER 2020-02-19 11:03 | Outpatient (REF) | payer BC, SELFPAY | END 2020-02-19 11:23 | LOC: LBN 11:03 | PROVIDERS: PCP Nurse Practitioner; Visit Provider Nurse Practitioner Adult Health | DX: E03.9 Hypothyroidism, unspecified (principal) | CPT/HCPCS: 84443 ==

== ENCOUNTER 2020-04-08 14:53 | Outpatient (REF) | payer BC, SELFPAY | END 2020-04-08 15:13 | LOC: LBN 14:53 | PROVIDERS: PCP Nurse Practitioner; Visit Provider Obstetrics & Gynecology | DX: R30.0 Dysuria (principal) | CPT/HCPCS: 87086 ==

== ENCOUNTER 2020-06-29 11:54 | Outpatient (CLI) | payer BC, SELFPAY ==
[2020-07-03 19:16] LABS: Patient Race White; SARS-CoV-2 RNA Undetected (Undetected); SARS-CoV-2 Specimen Source Nasal
== END 2020-06-29 12:14 ==
PROVIDERS: PCP Nurse Practitioner; Visit Provider Family Medicine
DX: R06.02 Shortness of breath (principal)
CPT/HCPCS: U0003

== ENCOUNTER 2020-10-13 03:21 | Outpatient (CLI) | payer BC, SELFPAY ==
[2020-10-13 12:05] LABS: HCG Quant, Pregnancy 17209 mIU/mL (1-3)
== END 2020-10-13 03:22 | disposition home or self-care (01) ==
LOC: LBO 03:22
PROVIDERS: PCP Nurse Practitioner; Visit Provider Advanced Practice Midwife
DX: O20.0 Threatened abortion (principal)
CPT/HCPCS: 36415; 84702

== ENCOUNTER 2020-10-15 02:49 | Outpatient (CLI) | payer BC, SELFPAY ==
[2020-10-15 12:57] LABS: HCG Quant, Pregnancy 28409 mIU/mL (1-3)
== END 2020-10-15 02:50 | disposition home or self-care (01) ==
LOC: LBO 02:49
PROVIDERS: PCP Nurse Practitioner; Visit Provider Advanced Practice Midwife
DX: O20.0 Threatened abortion (principal)
CPT/HCPCS: 36415; 84702

== ENCOUNTER 2020-10-23 03:06 | Outpatient (CLI) | payer BC, SELFPAY ==
--- NOTE | 2020-10-23 09:15 | DI.US_ITS ---
EXAM: US OB 1ST TRIMESTER CLINICAL HISTORY: f/u viabiity,O20.0,THREATENED MISCARRIAGE. COMPARISON: US US OB 1ST TRIMESTER from 10/16/2020 US US OB 1ST TRIMESTER from 10/16/2020 TECHNIQUE: Transabdominal Transvaginal first trimester obstetrical ultrasound performed. FINDINGS: Sonographic images demonstrate a single intrauterine gestation. A yolk sac and pole are seen. Sonographically assessed gestational age based upon crown-rump length of 1.0 cm is: 7.1 weeks Estimated date of delivery based on this ultrasound is: 10 June 2021 Estimated date of delivery based upon prior ultrasound 7.1 weeks heart rate motion is Dopplered at: 130 beats per minute bpm. A small amount of free fluid is identified. Both ovaries appear sonographically normal. Corpus luteum cyst left ovary. A trace amount of fluid is seen adjacent to the gestational sac which appears smaller when compared w ith the previous exam. IMPRESSION: Single live intrauterine gestation 7 weeks 1 day.. Decreased size of subchorionic hemorrhage. Fet al heart rate is low at 130 beats per minute. DATA REPOSITORY:
== END 2020-10-23 03:07 ==
LOC: DI 03:06
PROVIDERS: PCP Nurse Practitioner; Visit Provider Advanced Practice Midwife
DX: O20.0 Threatened abortion (principal)
CPT/HCPCS: 76801

== ENCOUNTER 2020-11-18 04:22 | Outpatient (CLI) | payer BC, SELFPAY ==
[2020-11-18 10:42] LABS: Abs Immature Grans 0.02 10^3/uL (0.0-0.06); Absolute Basophil Count 0.02 10^3/uL (0.0-0.2); Absolute Eosinophil Count 0.03 10^3/uL (0.0-0.7); Absolute Lymphocyte Count 1.52 10^3/uL (1.2-3.4); Absolute Monocyte Count 0.24 10^3/uL (0.1-0.8); Absolute Neutrophil Count 3.85 10^3/uL (1.2-6.7); Basophils % 0.4; Eosinophils % 0.5; HCT 37.6 % (36.0-46.0); Immature Grans % 0.4; Lymphocytes % 26.8; MCH 27.4 pg (27.0-33.0); MCHC 34.6 % (32.0-36.0); MCV 79.3 fL (80-95); MPV 9.8 fL (8.0-11.0); Monocytes % 4.2; Neutrophils % 67.7; Nucleated RBC 0 %; Platelet Count 255 10^3/uL (130-400); RBC 4.74 10^6/uL (3.93-5.22); RDW-SD 40.3 fL; WBC 5.68 10^3/uL (4.4-10.8)
[2020-11-18 10:48] LABS: Glucose,1 Hr (Glucola) 106 mg/dL (80-140)
[2020-11-18 11:44] LABS: TSH (W/Ref FT4) 2.38 uIU/mL (0.36-3.74)
[2020-11-18 12:49] LABS: *AMPHETAMINES SCREEN URINE Negative (Negative); *BARBITURATES SCREEN URINE Negative (Negative); *BENZODIAZEPINES SCREEN URINE Negative (Negative); Cannabinoids THC Negative (Negative); Cocaine Screen,Urine Negative (Negative); METHADONE URINE SCREEN Negative (Negative); OPIATES URINE SCREEN Negative (Negative)
[2020-11-18 12:52] LABS: Tricyclic Antidepressants Negative (Negative)
[2020-11-19 09:22] LABS: Hepatitis B Surface Ag Negative (Negative)
[2020-11-19 10:02] LABS: HIV-1/2 Ag & Ab Screen Negative (Negative)
[2020-11-19 10:15] LABS: Hepatitis C Ab w Rflx HCV PCR Negative (Negative)
[2020-11-19 11:17] LABS: Rubella IgG Ab (UVM) Positive (See Note); Varicella IgG Antibody Positive (See Note)
[2020-11-19 16:53] LABS: Syphilis Total Ab w/Reflex Nonreactive (Nonreactive)
[2020-11-20 15:00] LABS: Chlamydia Result Negative (Negative); GC Result Negative (Negative)
[2020-11-21 12:01] LABS: Buprenorphine Negative ng/mL (Cutoff: 5.0); Norbuprenorphine Negative ng/mL (Cutoff: 2.5)
== END 2020-11-18 04:23 | disposition home or self-care (01) ==
LOC: LBO 04:22
PROVIDERS: Advanced Practice Midwife; PCP Nurse Practitioner; Visit Provider Advanced Practice Midwife
DX: Z34.91 Encounter for supervision of normal pregnancy, unspecified, first trimester (principal); Z11.3 Encounter for screening for infections with a predominantly sexual mode of transmission; Z11.4 Encounter for screening for human immunodeficiency virus [HIV]; Z11.59 Encounter for screening for other viral diseases; Z01.84 Encounter for antibody response examination
CPT/HCPCS: 36415; 80307; 82950; 86787; 86803; 86850; 86900; 86901; 87340; 87389; 87491; 87591; 84443; 85025; 86762; 86780; 87086

== ENCOUNTER 2020-11-19 09:27 | Outpatient (CLI) | payer BC, SELFPAY ==
[2020-11-20 16:03] LABS: COVID-19 RT-PCR UVMMC Result Negative (Negative)
== END 2020-11-19 09:28 | disposition home or self-care (01) ==
PROVIDERS: PCP Nurse Practitioner; Visit Provider Nurse Practitioner
DX: Z20.822 Contact with and (suspected) exposure to COVID-19 (principal)
CPT/HCPCS: U0003

== ENCOUNTER 2020-11-30 04:36 | Outpatient (CLI) | payer BC, SELFPAY ==
[2020-11-30 09:38] LABS: Kit/Specimen SENT
== END 2020-11-30 04:37 | disposition home or self-care (01) ==
LOC: LBO 04:36
PROVIDERS: PCP Nurse Practitioner Adult Health; Visit Provider Advanced Practice Midwife
DX: Z34.91 Encounter for supervision of normal pregnancy, unspecified, first trimester (principal); Z36.89 Encounter for other specified antenatal screening
CPT/HCPCS: 36415

== ENCOUNTER 2021-01-13 15:37 | Outpatient (CLI) | payer BC, SELFPAY ==
[2021-01-13 16:53] LABS: ALT 37 U/L (14-59); AST 18 U/L (15-37); Albumin 3.2 g/dL (3.4-5.0); Alkaline Phosphatase 90 U/L (46-116); Bilirubin, Direct 0.2 mg/dL (0.0-0.2); Bilirubin, Total 0.9 mg/dL (0.2-1.0)
[2021-01-15 18:00] LABS: Bile Acids, Total 11 mcmol/L (<=10)
== END 2021-01-13 15:38 | disposition home or self-care (01) ==
LOC: LBO 15:38
PROVIDERS: PCP Nurse Practitioner Adult Health; Visit Provider Advanced Practice Midwife
DX: O99.713 Diseases of the skin and subcutaneous tissue complicating pregnancy, third trimester (principal); L29.8 Other pruritus; Z3A.18 18 weeks gestation of pregnancy
CPT/HCPCS: 36415; 80076; 82239

== ENCOUNTER 2021-01-26 03:02 | Outpatient (CLI) | payer BC, SELFPAY ==
[2021-01-26 11:21] LABS: ALT 28 U/L (14-59); AST 17 U/L (15-37); Albumin 3.1 g/dL (3.4-5.0); Alkaline Phosphatase 85 U/L (46-116); Bilirubin, Direct 0.2 mg/dL (0.0-0.2); Bilirubin, Total 0.7 mg/dL (0.2-1.0); Total Protein 6.9 g/dL (6.4-8.2)
[2021-01-27 17:47] LABS: Bile Acids, Total 13 mcmol/L (<=10)
== END 2021-01-26 03:03 | disposition home or self-care (01) ==
LOC: LBO 03:02
PROVIDERS: PCP Nurse Practitioner Adult Health; Visit Provider Advanced Practice Midwife
DX: K83.1 Obstruction of bile duct (principal); O26.612 Liver and biliary tract disorders in pregnancy, second trimester; Z3A.20 20 weeks gestation of pregnancy
CPT/HCPCS: 36415; 80076; 82239

== ENCOUNTER 2021-02-01 04:41 | Outpatient (CLI) | payer BC, SELFPAY ==
[2021-02-01 15:25] LABS: ALT 64 U/L (14-59); AST 35 U/L (15-37); Alkaline Phosphatase 89 U/L (46-116); Bilirubin, Direct 0.3 mg/dL (0.0-0.2); Bilirubin, Total 0.9 mg/dL (0.2-1.0); Total Protein 6.9 g/dL (6.4-8.2)
[2021-02-02 18:08] LABS: Bile Acids, Total 21 mcmol/L (<=10)
== END 2021-02-01 04:42 | disposition home or self-care (01) ==
LOC: LBO 04:42
PROVIDERS: PCP Nurse Practitioner Adult Health; Visit Provider Advanced Practice Midwife
DX: O26.612 Liver and biliary tract disorders in pregnancy, second trimester (principal); Z3A.21 21 weeks gestation of pregnancy
CPT/HCPCS: 36415; 80076; 82239

== ENCOUNTER 2021-02-18 03:58 | Outpatient (CLI) | payer BC, SELFPAY ==
[2021-02-18 14:14] LABS: ALT 24 U/L (14-59); AST 12 U/L (15-37); Albumin 2.9 g/dL (3.4-5.0); Alkaline Phosphatase 84 U/L (46-116); Anion Gap 11.8 mmol/L (3-11); BUN 5 mg/dL (7-18); Bilirubin, Total 0.6 mg/dL (0.2-1.0); CO2 23.2 mmol/L (21.0-32.0); CREATININE 0.6 mg/dL (0.55-1.02); Calcium 8.6 mg/dL (8.5-10.1); Chloride 105 mmol/L (98-107); Glucose 88 mg/dL (74-106); Potassium 3.8 mmol/L (3.5-5.1); Sodium 140 mmol/L (136-145); Total Protein 6.4 g/dL (6.4-8.2)
[2021-02-19 18:32] LABS: Bile Acids, Total 7 mcmol/L (<=10)
== END 2021-02-18 03:59 | disposition home or self-care (01) ==
LOC: LBO 03:58
PROVIDERS: PCP Nurse Practitioner Adult Health; Visit Provider Obstetrics & Gynecology Gynecology
DX: O26.612 Liver and biliary tract disorders in pregnancy, second trimester (principal)
CPT/HCPCS: 36415; 80053; 82239

== ENCOUNTER 2021-03-10 13:27 | Outpatient (CLI) | payer BC, SELFPAY ==
[2021-03-10 09:59] VITALS: BP 117/57; PULSE 80; TEMP 36.7
--- NOTE | 2021-03-10 15:40 | W.OBNST ---
Date of service: 03/10/21 Time of Service: 15:40 NST Evaluation Reason for NST Reasons for Nonstress Test: OTHER, SEE COMMENT Reason for NST Other: Vaginal Bleeding Gestational Age Gestational Age in Weeks and Days: 26 Weeks and 6Days Test and Monitor Explained Test/Monitor Explained: Test Explained, Monitor Explained and Patient Verbalized Understanding Vital Signs Blood Pressure: 117/57 Pulse: 80 Temperature: 98.1 F Urine Results Urine Protein: Negative Urine Ketones: Negative Urine Glucose: Negative Urine Blood: Negative NST Information Date on Monitor: 03/10/21 Time on Monitor: 09:47 Date off Monitor: 03/10/21 Time off Monitor: 10:35 Total Time on Monitor: 48 NST Interventions: PO Hydration Contraction Frequency: none NST Evaluation Patient States Movement: Present FHR Baseline: 145 Variability: Moderate 6-25 bpm Accelerations: 10x10 Decelerations: None NST Results: Reactive Note NST Note Note: cvx closed, SSE performed, no bleeding seen, VPS and CT/GC collected, pt discharged to home NST Reviewed and Verified by: Angela Norris
[2021-03-10 15:41] VITALS: BP 117/57; PULSE 80; TEMP 36.7
[2021-03-11 14:52] LABS: Chlamydia Result Negative (Negative); GC Result Negative (Negative)
== END 2021-03-10 13:28 | disposition home or self-care (01) ==
LOC: BCD 03-12 13:28
PROVIDERS: PCP Nurse Practitioner Adult Health; Visit Provider Advanced Practice Midwife
DX: O26.852 Spotting complicating pregnancy, second trimester (principal); Z3A.26 26 weeks gestation of pregnancy
CPT/HCPCS: 59025; 87491; 87591; 87480; 87510; 87660

== ENCOUNTER 2021-03-22 02:07 | Outpatient (CLI) | payer BC, SELFPAY ==
[2021-03-22 10:15] LABS: HCT 33.8 % (36.0-46.0); HGB 11.6 g/dL (11.2-15.7); MCH 29.7 pg (27.0-33.0); MCHC 34.3 % (32.0-36.0); MCV 86.7 fL (80-95); MPV 10.4 fL (8.0-11.0); Platelet Count 218 10^3/uL (130-400); RDW 14.3 % (11.7-14.6); WBC 7.22 10^3/uL (4.4-10.8)
[2021-03-22 10:29] LABS: Glucose,1 Hr (Glucola) 107 mg/dL (80-140)
[2021-03-22 10:33] LABS: ALT 16 U/L (14-59); AST 11 U/L (15-37); Albumin 2.7 g/dL (3.4-5.0); Alkaline Phosphatase 85 U/L (46-116); Anion Gap 12.1 mmol/L (3-11); BUN 3 mg/dL (7-18); Bilirubin, Total 0.7 mg/dL (0.2-1.0); CO2 23.9 mmol/L (21.0-32.0); CREATININE 0.5 mg/dL (0.55-1.02); Calcium 8.5 mg/dL (8.5-10.1); Chloride 105 mmol/L (98-107); Glucose 106 mg/dL (74-106); Potassium 3.6 mmol/L (3.5-5.1); Sodium 141 mmol/L (136-145); Total Protein 6.7 g/dL (6.4-8.2)
[2021-03-23 16:36] LABS: Bile Acids, Total 8 mcmol/L (<=10)
== END 2021-03-22 02:08 | disposition home or self-care (01) ==
LOC: LBO 02:07
PROVIDERS: PCP Nurse Practitioner Adult Health; Visit Provider Obstetrics & Gynecology Gynecology
DX: O26.613 Liver and biliary tract disorders in pregnancy, third trimester (principal); O09.93 Supervision of high risk pregnancy, unspecified, third trimester; Z3A.28 28 weeks gestation of pregnancy
CPT/HCPCS: 36415; 80053; 82950; 85027; 82239

== ENCOUNTER 2021-04-19 08:07 | Outpatient (CLI) | payer BC, SELFPAY ==
[2021-04-19 09:52] VITALS: BP 118/74; PULSE 96; TEMP 36.9
[2021-04-19 10:09] VITALS: BP 118/74; PULSE 96
[2021-04-19 10:11] VITALS: BP 118/74; PULSE 96; TEMP 36.9
[2021-04-19 11:07] LABS: Abs Immature Grans 0.02 10^3/uL (0.0-0.06); Absolute Basophil Count 0.01 10^3/uL (0.0-0.2); Absolute Eosinophil Count 0.02 10^3/uL (0.0-0.7); Absolute Lymphocyte Count 1.36 10^3/uL (1.2-3.4); Absolute Monocyte Count 0.24 10^3/uL (0.1-0.8); Absolute Neutrophil Count 5.31 10^3/uL (1.2-6.7); Basophils % 0.1; Eosinophils % 0.3; HGB 10.9 g/dL (11.2-15.7); Immature Grans % 0.3; Lymphocytes % 19.5; MCH 29.5 pg (27.0-33.0); MCHC 34.1 % (32.0-36.0); MCV 86.5 fL (80-95); MPV 10.8 fL (8.0-11.0); Monocytes % 3.4; Neutrophils % 76.4; Nucleated RBC 0 %; Platelet Count 198 10^3/uL (130-400); RDW 14.4 % (11.7-14.6); RDW-SD 45.2 fL; WBC 6.96 10^3/uL (4.4-10.8)
[2021-04-19 11:22] LABS: ALT 14 U/L (14-59); AST 16 U/L (15-37); Albumin 2.5 g/dL (3.4-5.0); Alkaline Phosphatase 99 U/L (46-116); Anion Gap 12.3 mmol/L (3-11); BUN 8 mg/dL (7-18); Bilirubin, Total 0.9 mg/dL (0.2-1.0); CO2 21.7 mmol/L (21.0-32.0); CREATININE 0.6 mg/dL (0.55-1.02); Calcium 8.9 mg/dL (8.5-10.1); Chloride 104 mmol/L (98-107); Glucose 157 mg/dL (74-106); Potassium 3.7 mmol/L (3.5-5.1); Sodium 138 mmol/L (136-145); Total Protein 6.6 g/dL (6.4-8.2)
[2021-04-20 11:20] VITALS: BP 118/74; PULSE 96; TEMP 36.9
--- NOTE | 2021-04-20 11:20 | W.OBNST ---
Date of service: 04/20/21 Time of Service: 11:20 NST Evaluation Reason for NST Reasons for Nonstress Test: OTHER, SEE COMMENT Reason for NST Other: ICP Gestational Age Gestational Age in Weeks and Days: 32 Weeks and 4Days Test and Monitor Explained Test/Monitor Explained: Test Explained, Monitor Explained and Patient Verbalized Understanding Vital Signs Blood Pressure: 118/74 Pulse: 96 Temperature: 98.4 F NST Information Date on Monitor: 04/19/21 Time on Monitor: 09:56 NST Interventions: PO Hydration NST Evaluation Patient States Movement: Present FHR Baseline: 145 Variability: Moderate 6-25 bpm Accelerations: 15x15 Decelerations: None NST Results: Reactive NST Evaluation Baby B Patient States Movement: Present Variability: Moderate 6-25 bpm Accelerations: 15x15 Decelerations: None NST Results: Reactive NST Results Other: reviewed by Dr. Toro Note NST Note Note: Patient seen for nonstress test today. Surveillance for intrahepatic cholestasis in . NST is reactive with a category 1 strip NST Reviewed and Verified by: Wendi Toro
[2021-04-20 16:08] LABS: Bile Acids, Total 15 mcmol/L (<=10)
== END 2021-04-19 10:32 | disposition home or self-care (01) ==
LOC: BCD 08:13 → OBS 09:28
PROVIDERS: PCP Nurse Practitioner Adult Health; Visit Provider Obstetrics & Gynecology
DX: O26.613 Liver and biliary tract disorders in pregnancy, third trimester (principal); Z3A.32 32 weeks gestation of pregnancy
CPT/HCPCS: 80053; 59025; 82239; 85025

== ENCOUNTER 2021-04-22 09:21 | Outpatient (CLI) | payer BC, SELFPAY ==
[2021-04-22 10:00] VITALS: BP 119/74; PULSE 88; TEMP 37.1
[2021-04-22 10:36] VITALS: BP 119/74; PULSE 88
[2021-04-22 10:46] VITALS: BP 119/74; PULSE 88; TEMP 37.1
--- NOTE | 2021-04-22 10:46 | W.OBNST ---
Date of service: 04/22/21 Time of Service: 10:46 NST Evaluation Reason for NST Reasons for Nonstress Test: OTHER, SEE COMMENT Reason for NST Other: ICP Gestational Age Gestational Age in Weeks and Days: 33 Weeks and 0Days Test and Monitor Explained Test/Monitor Explained: Test Explained, Monitor Explained and Patient Verbalized Understanding Vital Signs Blood Pressure: 119/74 Pulse: 88 Temperature: 98.8 F NST Information Date on Monitor: 04/22/21 Time on Monitor: 10:04 Date off Monitor: 04/22/21 Time off Monitor: 10:43 Total Time on Monitor: 39 NST Interventions: PO Hydration NST Evaluation Patient States Movement: Present FHR Baseline: 135 Variability: Moderate 6-25 bpm Accelerations: 15x15 Decelerations: None NST Results: Reactive NST Results Other: reviewed by Dr. Toro. Note NST Note Note: Patient seen on the center for surveillance. Category 1 strip, reactive nonstress test. We will follow-up for twice weekly surveillance NST Reviewed and Verified by: Wendi Toro
== END 2021-04-22 10:40 | disposition home or self-care (01) ==
LOC: BCD 09:26 → OBS 09:58
PROVIDERS: PCP Nurse Practitioner Adult Health; Visit Provider Obstetrics & Gynecology
DX: O26.613 Liver and biliary tract disorders in pregnancy, third trimester (principal); Z3A.33 33 weeks gestation of pregnancy
CPT/HCPCS: 59025

== ENCOUNTER 2021-04-26 08:23 | Outpatient (CLI) | payer BC, SELFPAY ==
[2021-04-26 10:05] VITALS: BP 136/87; PULSE 114; TEMP 36.9
[2021-04-26 10:08] VITALS: BP 136/87; PULSE 114
[2021-04-26 10:34] VITALS: BP 129/79; PULSE 95
--- NOTE | 2021-04-26 10:55 | W.OBNST ---
Date of service: 04/26/21 Time of Service: 10:55 NST Evaluation Reason for NST Reasons for Nonstress Test: OTHER, SEE COMMENT Reason for NST Other: Itching Gestational Age Gestational Age in Weeks and Days: 33 Weeks and 4Days Test and Monitor Explained Test/Monitor Explained: Test Explained, Monitor Explained and Patient Verbalized Understanding Vital Signs Blood Pressure: 136/87 Pulse: 114 Temperature: 98.4 F Urine Results Urine Protein: Negative Urine Ketones: Negative Urine Glucose: Negative Urine Blood: Negative NST Information Date on Monitor: 04/26/21 Time on Monitor: 10:03 Date off Monitor: 04/26/21 Time off Monitor: 10:37 Total Time on Monitor: 34 NST Interventions: PO Hydration Contraction Frequency: None NST Evaluation Patient States Movement: Present FHR Baseline: 145 Variability: Moderate 6-25 bpm Accelerations: 15x15 Decelerations: None NST Results: Reactive Note NST Note Note: Reactive NST, category 1 strip. Follow-up for NST on as scheduled. NST Reviewed and Verified by: Wendi Toro
[2021-04-26 10:56] VITALS: BP 136/87; PULSE 114; TEMP 36.9
== END 2021-04-26 10:40 | disposition home or self-care (01) ==
LOC: BCD 08:24 → OBS 09:59
PROVIDERS: PCP Nurse Practitioner Adult Health; Visit Provider Obstetrics & Gynecology
DX: O26.613 Liver and biliary tract disorders in pregnancy, third trimester (principal); K83.1 Obstruction of bile duct; Z3A.33 33 weeks gestation of pregnancy; L29.9 Pruritus, unspecified
CPT/HCPCS: 59025

== ENCOUNTER 2021-04-29 07:29 | Outpatient (CLI) | payer BC, SELFPAY ==
[2021-04-29 10:18] VITALS: BP 120/71; PULSE 83
[2021-04-29 10:43] VITALS: BP 120/71; PULSE 83; TEMP 36.5
--- NOTE | 2021-04-29 12:02 | W.OBNST ---
Date of service: 04/29/21 Time of Service: 12:02 NST Evaluation Reason for NST Reasons for Nonstress Test: OTHER, SEE COMMENT Reason for NST Other: cholestasis Gestational Age Gestational Age in Weeks and Days: 34 Weeks and 0Days Test and Monitor Explained Test/Monitor Explained: Test Explained, Monitor Explained and Patient Verbalized Understanding Vital Signs Blood Pressure: 120/71 Pulse: 83 Temperature: 97.7 F NST Information Date on Monitor: 04/29/21 Time on Monitor: 10:00 Date off Monitor: 04/29/21 Time off Monitor: 10:35 Total Time on Monitor: 35 NST Interventions: None NST Evaluation Patient States Movement: Present FHR Baseline: 135 Variability: Moderate 6-25 bpm Accelerations: 15x15 Decelerations: None NST Results: Reactive Note NST Note Note: Patient seen on the center for surveillance due to cholestasis of . She is doing well. She has no signs or symptoms of preeclampsia. She has a reactive NST with a category 1 strip. She will have her next OB visit and test on Monday NST Reviewed and Verified by: Wendi Toro
[2021-04-29 12:03] VITALS: BP 120/71; PULSE 83; TEMP 36.5
== END 2021-04-29 10:47 | disposition home or self-care (01) ==
LOC: BCD 07:33 → OBS 10:07
PROVIDERS: PCP Nurse Practitioner Adult Health; Visit Provider Obstetrics & Gynecology
DX: O26.813 Pregnancy related exhaustion and fatigue, third trimester (principal); K83.1 Obstruction of bile duct; Z3A.34 34 weeks gestation of pregnancy
CPT/HCPCS: 59025

== ENCOUNTER 2021-04-30 04:07 | Outpatient (CLI) | payer BC, SELFPAY ==
--- NOTE | 2021-04-30 07:51 | DI.US_ITS ---
Exam(s) US OB SERG WEIGHT EXAM: US OB SERG WEIGHT CLINICAL HISTORY: growth and fluid,Z34.83,MOD TO PROTOCOL TECHNIQUE: Ultrasound performed using standard protocol. COMPARISON: US US OB 2-3 TRIMESTER from 01/13/2021 FINDINGS: Ob ultrasound was performed utilizing 3rd trimester protocol. biometry is consistent with gest ational age 35 weeks 2 days and an EDC June 02. The estimated weight is 2634 grams which is at the 77th percentile for predicted gestational ag e. Placenta is posterior and fundal with no placenta previa. There is visually a normal quantity of amniotic fluid and the SERG is 17. Fetus is in cephalic presentation. heart rate is 150 BPM. IMPRESSION: DATA REPOSITORY:
== END 2021-04-30 04:27 ==
PROVIDERS: PCP Nurse Practitioner Adult Health; Visit Provider Obstetrics & Gynecology Gynecology
DX: O26.613 Liver and biliary tract disorders in pregnancy, third trimester (principal); K83.1 Obstruction of bile duct; Z34.83 Encounter for supervision of other normal pregnancy, third trimester
CPT/HCPCS: 76816

== ENCOUNTER 2021-05-03 08:17 | Outpatient (CLI) | payer BC, SELFPAY ==
[2021-05-03 10:10] VITALS: BP 124/71; PULSE 99; TEMP 37.1
[2021-05-03 10:19] VITALS: BP 124/71; PULSE 99
--- NOTE | 2021-05-03 11:00 | W.OBNST ---
Date of service: 05/03/21 Time of Service: 11:00 NST Evaluation Reason for NST Reasons for Nonstress Test: OTHER, SEE COMMENT Reason for NST Other: Cholestasis Gestational Age Gestational Age in Weeks and Days: 34 Weeks and 4Days Test and Monitor Explained Test/Monitor Explained: Test Explained, Monitor Explained and Patient Verbalized Understanding Vital Signs Blood Pressure: 124/71 Pulse: 99 Temperature: 98.8 F Urine Results Urine Protein: Negative Urine Ketones: Negative Urine Glucose: Positive Urine Blood: Negative NST Information Date on Monitor: 05/03/21 Time on Monitor: 10:10 Date off Monitor: 05/03/21 Time off Monitor: 10:40 Total Time on Monitor: 30 NST Interventions: PO Hydration NST Evaluation Patient States Movement: Present FHR Baseline: 145 Variability: Moderate 6-25 bpm Accelerations: 15x15 Decelerations: None NST Results: Reactive Note NST Note Note: Surveillance NST for intrahepatic cholestasis of . Category 1 strip. NST reactive. Follow-up as scheduled NST Reviewed and Verified by: Wendi Toro
[2021-05-03 11:01] VITALS: BP 124/71; PULSE 99; TEMP 37.1
== END 2021-05-03 10:50 | disposition home or self-care (01) ==
LOC: BCD 08:20 → OBS 10:11
PROVIDERS: PCP Nurse Practitioner Adult Health; Visit Provider Advanced Practice Midwife
DX: O26.613 Liver and biliary tract disorders in pregnancy, third trimester (principal); K83.1 Obstruction of bile duct; Z3A.34 34 weeks gestation of pregnancy
CPT/HCPCS: 59025

== ENCOUNTER 2021-05-06 07:14 | Outpatient (CLI) | payer BC, SELFPAY ==
[2021-05-06 10:01] VITALS: BP 126/76; PULSE 95; TEMP 207.7; TEMP 97.6
[2021-05-06 10:07] VITALS: BP 126/76; PULSE 95
--- NOTE | 2021-05-06 11:34 | W.OBNST ---
Date of service: 05/06/21 Time of Service: 11:35 NST Evaluation Reason for NST Reasons for Nonstress Test: OTHER, SEE COMMENT Reason for NST Other: ICP Gestational Age Gestational Age in Weeks and Days: 35 Weeks and 0Days Test and Monitor Explained Test/Monitor Explained: Patient Verbalized Understanding Vital Signs Blood Pressure: 126/76 Pulse: 95 Temperature: 207.7 F NST Information Date on Monitor: 05/06/21 Time on Monitor: 10:04 Date off Monitor: 05/06/21 NST Interventions: None Contraction Frequency: 20 mins NST Evaluation Patient States Movement: Present FHR Baseline: 150 Variability: Moderate 6-25 bpm Accelerations: 15x15 Decelerations: None NST Results: Reactive Note NST Note Note: Reactive NST. Pt reports occasional contraction. Good movement. Pt will return to office on 05/10/21. I recommended that date for IOL be formalized. NST Reviewed and Verified by: Brooke Morales
[2021-05-06 11:38] VITALS: BP 126/76; PULSE 95; TEMP 207.7; TEMP 97.6
== END 2021-05-06 10:48 | disposition home or self-care (01) ==
LOC: BCD 07:15 → OBS 09:59
PROVIDERS: PCP Nurse Practitioner Adult Health; Visit Provider Obstetrics & Gynecology
DX: O26.613 Liver and biliary tract disorders in pregnancy, third trimester (principal); K83.1 Obstruction of bile duct; Z3A.38 38 weeks gestation of pregnancy

== ENCOUNTER 2021-05-10 07:08 | Outpatient (CLI) | payer BC, SELFPAY ==
[2021-05-10 09:59] VITALS: BP 127/71; PULSE 105; TEMP 37
[2021-05-10 10:07] VITALS: BP 127/71; PULSE 105
[2021-05-10 10:49] VITALS: BP 127/71; PULSE 105; TEMP 37
--- NOTE | 2021-05-10 10:49 | PDOC.NST_ITS ---
Date of service: 05/10/21 Time of Service: 10:49 NST Evaluation Reason for NST Reasons for Nonstress Test: OTHER, SEE COMMENT Gestational Age Gestational Age in Weeks and Days: 35 Weeks and 4Days Test and Monitor Explained Test/Monitor Explained: Test Explained, Monitor Explained and Patient Verbalized Understanding Vital Signs Blood Pressure: 127/71 Pulse: 105 Temperature: 98.6 F NST Information Date on Monitor: 05/10/21 Time on Monitor: 10:00 NST Interventions: None and PO Hydration NST Evaluation Patient States Movement: Present Variability: Moderate 6-25 bpm Accelerations: 15x15 Decelerations: None NST Results: Reactive Note NST Note Note: Patient was seen for surveillance and OB visit on the center today. She has known intrahepatic cholestasis of . She has been doing reasonably well. Her nonstress test today is reactive with a category 1 strip. She will be seen again on for jorge luis veillance. Group B strep culture and cervical exam was performed today. NST Reviewed and Verified by: Wendi Toro
== END 2021-05-10 10:49 | disposition home or self-care (01) ==
LOC: BCD 07:11 → OBS 07:21
PROVIDERS: PCP Nurse Practitioner Adult Health; Visit Provider Obstetrics & Gynecology
DX: O26.613 Liver and biliary tract disorders in pregnancy, third trimester (principal); K83.1 Obstruction of bile duct; Z3A.35 35 weeks gestation of pregnancy
CPT/HCPCS: 59025; 87081

== ENCOUNTER 2021-05-13 07:08 | Outpatient (CLI) | payer BC, SELFPAY ==
[2021-05-13 10:04] VITALS: BP 127/80; PULSE 85; TEMP 36.4
[2021-05-13 10:31] VITALS: BP 127/80; PULSE 85
--- NOTE | 2021-05-19 10:50 | W.OBNST ---
Date of service: 05/19/21 Time of Service: 10:50 NST Evaluation Reason for NST Reasons for Nonstress Test: OTHER, SEE COMMENT Reason for NST Other: Cholestasis Gestational Age Gestational Age in Weeks and Days: 36 Weeks and 5Days Test and Monitor Explained Test/Monitor Explained: Test Explained, Monitor Explained and Patient Verbalized Understanding Vital Signs Blood Pressure: 127/80 Pulse: 85 Temperature: 97.5 F Urine Results Urine Protein: Negative Urine Ketones: Negative Urine Glucose: Negative Urine Blood: Negative NST Information Time on Monitor: 10:05 Date off Monitor: 05/13/21 Time off Monitor: 10:45 NST Interventions: PO Hydration Contraction Frequency: occasional NST Evaluation Patient States Movement: Present FHR Baseline: 150 Variability: Moderate 6-25 bpm Accelerations: 15x15 Decelerations: None NST Results: Reactive Note NST Note Note: Reactive NST, category 1 NST Reviewed and Verified by: Wendi Toro
[2021-05-19 10:51] VITALS: BP 127/80; PULSE 85; TEMP 36.4
[2021-05-19 10:52] VITALS: BP 127/80; PULSE 85; TEMP 36.4
--- NOTE | 2021-05-19 10:52 | W.OBNST ---
Date of service: 05/19/21 Time of Service: 10:52 NST Evaluation Reason for NST Reasons for Nonstress Test: OTHER, SEE COMMENT Reason for NST Other: Cholestasis Gestational Age Gestational Age in Weeks and Days: 36 Weeks and 5Days Test and Monitor Explained Test/Monitor Explained: Test Explained, Monitor Explained and Patient Verbalized Understanding Vital Signs Blood Pressure: 127/80 Pulse: 85 Temperature: 97.5 F Urine Results Urine Protein: Negative Urine Ketones: Negative Urine Glucose: Negative Urine Blood: Negative NST Information Date on Monitor: 05/13/21 Time on Monitor: 10:05 Date off Monitor: 05/13/21 Time off Monitor: 10:45 Total Time on Monitor: 40 NST Interventions: PO Hydration Contraction Frequency: occasional NST Evaluation Patient States Movement: Present FHR Baseline: 150 Variability: Moderate 6-25 bpm Accelerations: 15x15 Decelerations: None NST Results: Reactive Note NST Note Note: Reactive NST, category 1 strip NST Reviewed and Verified by: Wendi Toro
== END 2021-05-13 10:50 | disposition home or self-care (01) ==
LOC: BCD 07:19 → OBS 09:58
PROVIDERS: PCP Nurse Practitioner Adult Health; Visit Provider Obstetrics & Gynecology
DX: O26.613 Liver and biliary tract disorders in pregnancy, third trimester (principal); K83.1 Obstruction of bile duct; Z3A.36 36 weeks gestation of pregnancy
CPT/HCPCS: 59025

== ENCOUNTER 2021-05-17 07:59 | Outpatient (CLI) | payer BC, SELFPAY ==
[2021-05-17 10:45] VITALS: BP 125/78; PULSE 102; TEMP 37.1
[2021-05-17 11:14] VITALS: BP 125/78; PULSE 102
--- NOTE | 2021-06-09 07:27 | W.OBNST ---
Date of service: 06/09/21 Time of Service: 07:27 NST Evaluation Reason for NST Reasons for Nonstress Test: OTHER, SEE COMMENT Reason for NST Other: ICP Gestational Age Gestational Age in Weeks and Days: 37 Weeks and 0Days Test and Monitor Explained Test/Monitor Explained: Test Explained, Monitor Explained and Patient Verbalized Understanding Vital Signs Blood Pressure: 125/78 Pulse: 102 Temperature: 98.8 F NST Information Date on Monitor: 05/17/21 Time on Monitor: 10:47 Date off Monitor: 05/17/21 Time off Monitor: 11:25 Total Time on Monitor: 38 NST Interventions: PO Hydration and Reposition Patient NST Evaluation Patient States Movement: Present FHR Baseline: 150 Variability: Absent Accelerations: 15x15 Decelerations: None NST Results: Reactive Note NST Note Note: Category 1 strip, Reactive NST NST Reviewed and Verified by: Wendi Toro
[2021-06-09 07:28] VITALS: BP 125/78; PULSE 102; TEMP 37.1
== END 2021-05-17 11:32 | disposition home or self-care (01) ==
LOC: BCD 08:01 → OBS 10:29
PROVIDERS: PCP Nurse Practitioner Adult Health; Visit Provider Obstetrics & Gynecology
DX: O26.613 Liver and biliary tract disorders in pregnancy, third trimester (principal); K83.1 Obstruction of bile duct; Z3A.37 37 weeks gestation of pregnancy
CPT/HCPCS: 59025

== ENCOUNTER 2021-05-17 16:22 | Outpatient (REF) | payer BC, SELFPAY ==
[2021-05-17 13:14] LABS: *AMPHETAMINES SCREEN URINE Negative (Negative); *BARBITURATES SCREEN URINE Negative (Negative); *BENZODIAZEPINES SCREEN URINE Negative (Negative); Cannabinoids THC Negative (Negative); Cocaine Screen,Urine Negative (Negative); METHADONE URINE SCREEN Negative (Negative); OPIATES URINE SCREEN Negative (Negative); Tricyclic Antidepressants Negative (Negative)
[2021-05-22 14:45] LABS: Buprenorphine Negative ng/mL (Cutoff: 5.0)
== END 2021-05-17 16:23 | disposition home or self-care (01) ==
LOC: LBN 16:22
PROVIDERS: PCP Nurse Practitioner Adult Health; Visit Provider Obstetrics & Gynecology
DX: Z34.93 Encounter for supervision of normal pregnancy, unspecified, third trimester (principal)
CPT/HCPCS: 80307

== ENCOUNTER 2021-05-18 17:58 | Outpatient (CLI) | payer BC, SELFPAY ==
[2021-05-18 18:40] VITALS: BP 136/79; PULSE 98
[2021-05-18 18:56] VITALS: BP 136/79; PULSE 98; TEMP 36.8
[2021-05-18 19:11] LABS: ROM Plus Negative
--- NOTE | 2021-05-18 19:23 | W.OBNST ---
Date of service: 05/18/21 Time of Service: 19:23 NST Evaluation Reason for NST Reasons for Nonstress Test: OTHER, SEE COMMENT Reason for NST Other: question rupture Gestational Age Gestational Age in Weeks and Days: 36 Weeks and 5Days Test and Monitor Explained Test/Monitor Explained: Test Explained, Monitor Explained and Patient Verbalized Understanding Vital Signs Blood Pressure: 136/79 Pulse: 98 Temperature: 98.2 F NST Information Date on Monitor: 05/18/21 Time on Monitor: 18:06 Date off Monitor: 05/18/21 Time off Monitor: 18:40 Total Time on Monitor: 34 NST Interventions: None Contraction Frequency: 2-6 NST Evaluation Patient States Movement: Present FHR Baseline: 150 Variability: Moderate 6-25 bpm Accelerations: 15x15 Decelerations: None NST Results: Reactive Note NST Note Note: Reactive NST. Laboratory tests demonstrated no evidence of rupture membranes. Patient was encouraged to return to home rest anticipation of admission for induction of labor on 05/21/2021. NST Reviewed and Verified by: Brooke Morales
[2021-05-18 19:24] VITALS: BP 136/79; PULSE 98; TEMP 36.8
[2021-05-18 20:03] VITALS: BP 136/79; PULSE 98; TEMP 36.8
== END 2021-05-18 20:04 | disposition home or self-care (01) ==
LOC: BCD 17:59 → OBS 18:08
PROVIDERS: PCP Nurse Practitioner Adult Health; Visit Provider Obstetrics & Gynecology Gynecology
DX: Z03.71 Encounter for suspected problem with amniotic cavity and membrane ruled out (principal); Z3A.36 36 weeks gestation of pregnancy
CPT/HCPCS: 84112; 59025

== ENCOUNTER 2021-05-20 09:50 | Inpatient (IN) | payer BC, SELFPAY ==
[2021-05-20] VITALS (46 sets, daily range): BP systolic 113–138; BP diastolic 66–87; PULSE 80–137; RESP 16–18; TEMP 36.8–37.4; O2SAT 94–100; BMI 32.5
--- NOTE | 2021-05-20 11:45 | W.PM.OBHPL1 ---
Date of service: 05/20/21 Time of Service: 11:52 Assessment and Plan Assessment and plan (1) Group B Streptococcus carrier, +RV culture, currently : Status: Acute Assessment and plan: Patient will receive penicillin prophylaxis during her labor. (2) Cholestasis during , antepartum: Status: Acute Assessment and plan: Her pruritus symptoms resolved and her LFTs normalized during this . The plan is to proceed with the induction of labor for maternal indications (3) Encounter for induction of labor: Status: Acute Assessment and plan: Cervix has a favorable Head score and Pitocin will be initiated along with GBS prophylaxis. OB-HPI Labor/Delivery History of Present Illness Reason for Visit: Induction of Labor Chief Complaint: Scheduled Induction of Labor Indication for Induction: Other (cholestasis of ). CHRISTOPHE Calculator Estimated Delivery Date Method Current WG Current Estimate 06/10/21 LMP (Certain) 37w 0d Other Estimates 06/10/21 Ultrasound #1 37w 0d History of Present Expected Delivery Route/Plan - CNM. Change to MD care 02/02/21 d/t cholestasis FOB/ - Carroll Goodwin BG Specific Issues/Plan 1. Early spotting, subchorionic bleed noted at 6 & 7 wk sono, resolving 2. Genetic testing: [place] LPX3 female, CF neg, SMA carrier screen negative 3. BMI 30, early glucola = 106 4. Hx pre-eclampsia, will start 81 mg/162 mg ASA alternating daily @ 12 wks 5. Hx Bipolar and Depression. Taking sertraline 50 mg PO currently, accepts ref to [facility] 6. Hx low thyroid, not on meds, TSH at initial OB -2.38 7. Heartburn - TUMS PRN. 04/09/21 Prevacid 30mg/day 8. Sciatica- Left side more than right 9. Tandem Nursing 10. Macaela and partner decline covid vaccine. 11. Cholestasis: Dx 01/15/21. MFM consult consult recommended increasing Ursadiol and labs monthly 02/10/21 Ursadiol increased to 600 mg twice daily 02/18/21.Bile acids and AST normalized. 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 Has seen a therapist in the past. Depressive disorder GERD (gastroesophageal reflux disease) during 3rd trimester of Group B Streptococcus carrier, +RV culture, currently HRP (high risk ) Hypothyroidism diagnosed age 19 after she gained a lot of weight with one of her bipolar medication; 2020: normal TSH off Levothyroxine for months; monitor Insomnia Irritable bowel syndrome Seasonal affective disorder Vitamin B12 deficiency (non anemic) Surgical History History of removal of ovarian cyst Family History Paternal Grandfather Hypertension Father Hypercholesterolemia Hypertension Mother Thyroid disorder Hypertension Hypercholesterolemia Immunodeficiency disorder Maternal Grandmother Thyroid disorder Heart disease Paternal Grandmother Diabetes Depression Sister Acute Crohn's disease Social History (Updated 05/20/21 @ 16:35 by Brooke Morales MD) Smoking/Tobacco Use Status: Former Tobacco Use Tobacco: How many years used: 10 Smokeless tobacco user: other (vaping) Quit status: has quit before Smoking risk assessment performed?: Yes Alcohol Intake: former Details: mixed drinks (rum with mountain dew) Substance use type: does not use Caregiver/Support person: No Household members: spouse and other Details: H-Ania Hodges-C[place] Housing: apartment Number of Children: 1 Communication Needs: None 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 What type of physical activity do you participate in: walking Seatbelt use: always Helmet use: Yes Drive intox or ride w/intox airport driver: No Working smoke detector in home: Yes Fire extinguisher in home: No Carbon monox detector in home: Yes Firearms in home: No Do you feel safe at home: Yes Do you feel safe in your relationship?: Yes Female Reproductive History Menstrual control method: progestin IUCD History History 2 Para 1 Hx # Term Pregnancies 1 Multiple births 0 Hx # Pregnancies 0 Ectopic pregnancies 0 AB induced 0 Hx Number of Living Children 1 AB spontaneous 0 Past Pregnancies Del. Date GA/Weeks # Outcome Route Wgt Sex Labor Lgth Anesthesia Location Prov Complic 07/16/19 40 No Successful vaginal 8 lb 5 oz Female 3 hrs 58 min [facility] - [facility] Delivery Date: 07/16/19 Induced due to Gestational HTN; Mendez, oxytocin, right labial laceration, repaired, didn't like nitrous. Brooke Macias Allergies and Home Medications Allergies Allergy/AdvReac Type Severity Reaction Status Date / Time venom-wasp Allergy Unknown Hives Verified 05/20/21 10:40 lamotrigine [From Lamictal] AdvReac Skin Rash Verified 05/20/21 10:40 Home Medications Medication Instructions Recorded Confirmed Type prenat.vits,kenn,cmk-xmid-brgsf 1 tab PO DAILY #90 tab 11/08/18 05/20/21 Rx sertraline 50 mg tablet 50 mg PO DAILY #90 tab 11/18/20 05/20/21 Rx hydroxyzine pamoate 25 mg capsule 25 mg PO TID PRN #60 cap 02/18/21 05/20/21 Rx lansoprazole 30 mg capsule,delayed 30 mg PO DAILY #60 cap 04/09/21 05/20/21 Rx release aspirin 81 mg chewable tablet 162 mg PO DAILY #90 tab 04/19/21 05/20/21 Rx ursodiol 500 mg tablet 500 mg PO BID #180 tab 04/19/21 05/20/21 Rx Exam Physical Exam Vital signs: Temp Pulse Resp BP 98.8 F 93 H 16 123/71 05/20/21 10:23 05/20/21 10:37 05/20/21 10:23 05/20/21 10:37 Detailed Labor and Delivery Exam Dilation: 2 Effacement (%): 50 station: -1 Cervix position: mid Consistency: soft Head Score: Cervical Points Exam 0 1 2 3 Dilation Closed 1-2cm 3-4 cm 5-6cm Effacement 0-30% 40-50% 60-70% 80% Consistency Firm Medium Soft Station -3 -2 -1,0 +1,+2 Position Posterior Mid Anterior HEAD Score(Cervical Ripeness Score): 8 Amniotic Membrane Status: Intact Monitor Mode: External Contraction Frequency(min): mild, irregular Contraction Duration(sec): 30-50 seconds Contraction Intensity: Mild Fetus A Heart Rate Baseline: 150 Monitor Accelerations: 15 X 15 Monitor Decelerations: None Variability: Moderate (6-25 BPM) Presentation: Cephalic Categories: Category I Respiratory Exam Respiratory Exam: Normal Cardiovascular Exam Cardiovascular Exam: Normal Abdominal Exam Abdominal Exam: Normal (no focal tenderness) Exam Exam: Normal Detailed Extremities Exam Extremities: Present edema (1+ pretibial) Back/Spine/Pelvis Exam Back Exam: Not Done Skin Exam Skin Exam: Normal (LE with crusted excoriations 3mm in diameter. 'Mosquito bites') Neurological Exam Neurological Exam: Normal (L Patellar =0 R Patellar=1. No clonus) Psychiatric Exam Psychiatric Exam: Normal DetailedPsychiatric Exam Psychiatric: Present normal affect Results Results Group Beta Strep: Positive Blood Type: B+ Rubella Status: Immune Varicella Immunity: Immune Risk Assessment Risk for Shoulder Dystocia Historical/Initial OB: NEGATIVE FOR: Pelvic Abnormality, Pre- BMI>30, Previous Shoulder Dystocia or Previous Macrosomia Increased Risk?: No Delivery Plan @ 36wks: 07/10/19 low risk al Risk for Pre-Eclampsia Daily Dose ASA Indicated: Yes Date Initiated/Initials: start low dose ASA at 12 wks. jk Yes, if one or more: POSTIVE FOR: Hx Pre-E/Gest HTN; NEGATIVE FOR: Chronic HTN, Multiple Gestation, Pre-gestational DM, Renal Disease, Systemic Lupus or APA Syndrome Yes, if 2 or more: POSITIVE FOR: BMI>30; NEGATIVE FOR: Nulliparity, Age>= 35 yrs, >10yr btwn pregnancies, ethinicty, Mother/Sister w/ Pre-E or Previous IUGR Risk for Post- Hemorrhage Initial: NEGATIVE FOR: Multiple Gestation, Previous PPH, Known Clotting Deficiency, Grand Multiparity or Anticoagulation At Risk?: No Counseled re: Active Management: Yes Date/Initials: 07/10/19 al Risks Reviewed Risks Reviewed Upon Admission: Yes
[2021-05-20 12:21] LABS: HGB 11.3 g/dL (11.2-15.7); MCH 28.9 pg (27.0-33.0); MCHC 34.2 % (32.0-36.0); MCV 84.4 fL (80-95); MPV 10.6 fL (8.0-11.0); Platelet Count 192 10^3/uL (130-400); RBC 3.91 10^6/uL (3.93-5.22); RDW 14.3 % (11.7-14.6); RDW-SD 43.6 fL; WBC 8.25 10^3/uL (4.4-10.8)
[2021-05-20] MEDS: Lactated Ringers 1,000 ML 125 ML IV (12:42)
[2021-05-20] MEDS: Normal Saline Flush 10 ML SYR IVP (12:43)
[2021-05-20] MEDS: Penicillin G POT. 5,000,000 UNITS in Normal Saline 100 ML 200 UNITS IVPB (12:43)
[2021-05-20 13:07] LABS: COVID-19 PCR Negative (Negative); Source Nasal/Nares
[2021-05-20] MEDS: Oxytocin/Normal Saline 30 UNIT/500 ML BAG 2 UNITS IV (13:15)
--- NOTE | 2021-05-20 16:49 | W.PM.OBNL1 ---
Date of service: 05/20/21 Time of Service: 16:49 Informed Consent Informed Consent: Induction of Labor and Risk,Benefits,Alternatives Discussed Pelvic Exam Dilation: 3 station: -1 Cervix Position: mid Consistency: soft BISHOPS Score(Cervical Ripeness Score): 8 Vaginal Exam Presentation: Cephalic Contractions Monitor Mode: External Contraction Frequency(min): q3-4 Contraction Duration(sec): 40-50 Intensity: Mild Fetus A Monitor: External (US) Presentation: Cephalic Variability: Moderate (6-25 BPM) (baseline shift, 160s.) Categories: Category I FHR Rhythm: Regular Characteristics: Tachycardia (160-170 range for past 40min) Accelerations: 15 X 15 Decelerations: None Amniotic Membrane Status: Ruptured Rupture Method: Artifical Amniotic Fluid: Clear Amount: 50 Date of Membrane Rupture: 05/20/21 Time of Membrane Rupture: 16:37 Assessment and Plan Assessment and plan (1) Encounter for induction of labor: Status: Acute Assessment and plan: Oxytocin infusion in progress. Patient tolerating contractions well. (2) Group B Streptococcus carrier, +RV culture, currently : Status: Acute Assessment and plan: Penicillin for group B strep prophylaxis in process. (3) Cholestasis during , antepartum: Status: Acute Assessment and plan: No symptoms. Objective Abnormal lab results 05/20/21 Range/Units 11:50 RBC 3.91 L (3.93-5.22) 10^6/uL Hct 33.0 L (36.0-46.0) % Temp Pulse Resp BP 99.0 F 80 18 127/72 05/20/21 16:31 05/20/21 16:32 05/20/21 16:31 05/20/21 16:32 Laboratory Results WBC 8.25 10^3/uL (4.4-10.8) 05/20/21 11:50 RBC 3.91 10^6/uL (3.93-5.22) L 05/20/21 11:50 Hgb 11.3 g/dL (11.2-15.7) 05/20/21 11:50 Hct 33.0 % (36.0-46.0) L 05/20/21 11:50 MCV 84.4 fL (80-95) 05/20/21 11:50 MCH 28.9 pg (27.0-33.0) 05/20/21 11:50 MCHC 34.2 % (32.0-36.0) 05/20/21 11:50 RDW 14.3 % (11.7-14.6) 05/20/21 11:50 Plt Count 192 10^3/uL (130-400) 05/20/21 11:50 MPV 10.6 fL (8.0-11.0) 05/20/21 11:50 COVID-19 Source Nasal/Nares 05/20/21 11:14 SARS-CoV-2 (PCR) Negative (Negative) 05/20/21 11:14 Patient ABO/Rh B Positive 05/20/21 12:12 Antibody Screen NEGATIVE 05/20/21 12:12 Subjective Patient Reports: No new Complaints Interval history since last seen: Oxytocin infusion initiated at 1300 today. Not appreciating contractions. Interventions Induction Indication: Other (Cholestasis in -stable) , Type of Induction: Pitocin , Results Hemoglobin/Hematocrit: Hgb 11.3 g/dL (11.2-15.7) 05/20/21 11:50 Hct 33.0 % (36.0-46.0) L 05/20/21 11:50 Abnormal Lab Findings: Abnormal Labs 05/20/21 11:50 RBC 3.91 L Hct 33.0 L
[2021-05-20] MEDS: Penicillin G POT. 3,000,000 UNITS in Normal Saline 50 ML 100 UNITS IVPB ×2 (16:52→20:32)
--- NOTE | 2021-05-20 19:38 | W.PM.OBNL1 ---
Date of service: 05/20/21 Time of Service: 19:39 Informed Consent Informed Consent: Induction of Labor and Risk,Benefits,Alternatives Discussed Assessment and Plan Assessment and plan (1) Encounter for induction of labor: Status: Acute (2) Group B Streptococcus carrier, +RV culture, currently : Status: Acute Objective Abnormal lab results 05/20/21 Range/Units 11:50 RBC 3.91 L (3.93-5.22) 10^6/uL Hct 33.0 L (36.0-46.0) % Temp Pulse Resp BP Pulse Ox 98.2 F 98 H 16 131/80 99 05/20/21 19:21 05/20/21 19:21 05/20/21 19:21 05/20/21 19:21 05/20/21 19:21 Laboratory Results WBC 8.25 10^3/uL (4.4-10.8) 05/20/21 11:50 RBC 3.91 10^6/uL (3.93-5.22) L 05/20/21 11:50 Hgb 11.3 g/dL (11.2-15.7) 05/20/21 11:50 Hct 33.0 % (36.0-46.0) L 05/20/21 11:50 MCV 84.4 fL (80-95) 05/20/21 11:50 MCH 28.9 pg (27.0-33.0) 05/20/21 11:50 MCHC 34.2 % (32.0-36.0) 05/20/21 11:50 RDW 14.3 % (11.7-14.6) 05/20/21 11:50 Plt Count 192 10^3/uL (130-400) 05/20/21 11:50 MPV 10.6 fL (8.0-11.0) 05/20/21 11:50 COVID-19 Source Nasal/Nares 05/20/21 11:14 SARS-CoV-2 (PCR) Negative (Negative) 05/20/21 11:14 Patient ABO/Rh B Positive 05/20/21 12:12 Antibody Screen NEGATIVE 05/20/21 12:12 Vital Signs Reviewed: Yes Subjective Patient Reports: New Complaints Interval history since last seen: Increasing back pain with contractions. Has been in tub, feeling more pain, nausea. Requesting an epidural. Interventions Pain Management Interventions: Epidural (Anesthesia paged. ) ./ Induction Indication: Other (cholestasis of ) , Type of Induction: Pitocin , Induction Note: Oxytocin infusion 10mu/min. . Results Hemoglobin/Hematocrit: Hgb 11.3 g/dL (11.2-15.7) 05/20/21 11:50 Hct 33.0 % (36.0-46.0) L 05/20/21 11:50 Abnormal Lab Findings: Abnormal Labs 05/20/21 11:50 RBC 3.91 L Hct 33.0 L Procedure Procedures: Other (Pt requesting epidural.)
[2021-05-20] MEDS: Lactated Ringers 500 ML IV (19:45)
[2021-05-20] MEDS: FentaNYL/ROPIvacaine 2 mcg/ml and 0.1% 200 ML CADD Cassette EP (20:00)
--- NOTE | 2021-05-20 20:00 | ANES.PREOP_ITS ---
General Info Date of Service Date Performed: 05/20/21 Height: 5 ft 9 in Weight: 99.79 kg Body Mass Index (BMI): 32.5 Meds Allergies and Home Medications Allergies Allergy/AdvReac Type Severity Reaction Status Date / Time venom-wasp Allergy Unknown Hives Verified 05/20/21 10:40 lamotrigine [From Lamictal] AdvReac Skin Rash Verified 05/20/21 10:40 Home Medication Medication Instructions Recorded prenat.vits,kenn,uac-ldwa-zoney 1 tab PO DAILY #90 tab 11/08/18 sertraline 50 mg tablet 50 mg PO DAILY #90 tab 11/18/20 hydroxyzine pamoate 25 mg capsule 25 mg PO TID PRN #60 cap 02/18/21 lansoprazole 30 mg capsule,delayed 30 mg PO DAILY #60 cap 04/09/21 release aspirin 81 mg chewable tablet 162 mg PO DAILY #90 tab 04/19/21 ursodiol 500 mg tablet 500 mg PO BID #180 tab 04/19/21 Current Visit Medications: Current Medications Generic Name Dose Route Start Last Admin Trade Name Freq PRN Reason Stop Dose Admin Fentanyl/Ropivacaine 200 ml 05/20/21 19:45 Fentanyl/Ropivacaine 2 Mcg/Ml And 0.1% 200 Ml Cadd Cassette EP DIRECTED DENYS Sodium Chloride 500 mls @ 0 mls/hr 05/20/21 11:33 Saline 500ml Bag IV PRN PRN As Directed Oxytocin/Sodium Chloride 30 unit in 500 mls @ 2 mls/hr 05/20/21 11:45 05/20/21 15:54 Pitocin/Normal Saline IV 10 milliunits/min INFUSION DENYS 10 mls/hr Titration Protocol 2 MILLIUNITS/MIN Penicillin G Potassium 3,000, 50 mls @ 100 mls/hr 05/20/21 16:00 05/20/21 17: 33 000 units/ Sodium Chloride IVPB Infused Q4H DENYS Infusion Ringer's Solution 1,000 mls @ 125 mls/hr 05/20/21 11:45 05/20/21 12:42 IV 125 mls/hr INFUSION DENYS Administration Ringer's Solution 500 mls @ 500 mls/hr 05/20/21 19:36 IV 05/20/21 20:35 BOLUS ONE IV Miscellaneous Supplies 1 each 09/23/21 11:45 Iv Access IV DIRECTED DENYS Sertraline HCl 50 mg 05/21/21 08:30 Sertraline 50 Mg Tab PO DAILY DENYS Sodium Chloride 0 ml 05/20/21 11:33 05/20/21 12:43 Normal Saline Flush 10 Ml Syr IVP 10 ml PRN PRN Administration PFSH Active Problems Active Problems: Problem Status Onset Code Encounter for induction of labor Z34.90 Group B Streptococcus carrier, +RV culture, currently O99.820 GERD (gastroesophageal reflux disease) K21.9 Encounter for supervision of other normal , third trimester Z34.83 HRP (high risk ) O09.90 Cholestasis during , antepartum O26.619, K83.1 Cholestatic pruritus L29.8 History of pre-eclampsia in prior , currently O09.299 BMI 30.0-30.9,adult Z68.30 Z34.90 Miscarriage, threatened, early O20.0 Weight gain R63.5 Vulvar edema N90.89 Bipolar disorder F31.9 Vitamin B12 deficiency (non anemic) E53.8 Irritable bowel syndrome K58.9 Depressive disorder F32.9 Anxiety F41.9 Hypothyroidism E03.9 Medical History Medical History (Updated 05/20/21 @ 16:39 by Brooke Morales MD) Anxiety Bipolar disorder 11/15/18 pt 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 Has seen a therapist in the past. Depressive disorder GERD (gastroesophageal reflux disease) during 3rd trimester of Group B Streptococcus carrier, +RV culture, currently HRP (high risk ) Hypothyroidism diagnosed age 19 after she gained a lot of weight with one of her bipolar medication; 2020: normal TSH off Levothyroxine for months; monitor Insomnia Irritable bowel syndrome Seasonal affective disorder Vitamin B12 deficiency (non anemic) Surgical History Surgical History History of removal of ovarian cyst Tobacco Smoking/Tobacco Use Status: Former Tobacco Use Tobacco: How many years used: 10 Smokeless tobacco user: other (vaping) Passive smoking exposure: No Quit Status: has quit before Alcohol Alcohol Intake: former Details: mixed drinks (rum with mountain dew) Substance Use Substance use type: does not use Prental History History 2 Para 1 Hx # Term Pregnancies 1 Multiple births 0 Hx # Pregnancies 0 Ectopic pregnancies 0 AB induced 0 Hx Number of Living Children 1 AB spontaneous 0 Past Pregnancies Del. Date GA/Weeks # Outcome Route Wgt Sex Labor Lgth Anesthes ia Location Prov Complic 07/16/19 40 No Successful vaginal 3770.487 g Female 3 hrs 58 min [facility] - [facility] Delivery Date: 07/16/19 Induced due to Gestational HTN; Mendez, oxytocin, right labial laceration, repaired, didn't like nitrous. Brooke Macias Vital Signs and Lab Results Vital Signs Most Recent Vital Signs in EMR: Most Recent Vital Signs Temp Pulse Resp BP Pulse Ox 36.8 C 98 H 16 131/80 99 05/20/21 19:21 05/20/21 19:21 05/20/21 19:21 05/20/21 19:21 05/20/21 19:21 Lab Results Result Diagrams: 05/20/21 11:50 Blood Type / Crossmatch: Patient ABO/Rh B Positive 05/20/21 12:12 05/20/21 Antibody Screen NEGATIVE 05/20/21 12:12 05/20/21 Complete Blood Count: White Blood Count 8.25 10^3/uL (4.4-10.8) 05/20/21 11:50 05/20/21 Red Blood Count 3.91 10^6/uL (3.93-5.22) L 05/20/21 11:50 05/20/21 Hemoglobin 11.3 g/dL (11.2-15.7) 05/20/21 11:50 05/20/21 Hematocrit 33.0 % (36.0-46.0) L 05/20/21 11:50 05/20/21 Platelet Count 192 10^3/uL (130-400) 05/20/21 11:50 05/20/21 Complete Metabolic Panel: No Data to Display Liver Function Panel: No Data to Display Coagulation Panel: No Data to Display Cardiac Panel: No Data to Display Arterial Blood Gas: No Data to Display Venous Blood Gas: No Data to Display Pancreas Panel: No Data to Display Thyroid Panel: No Data to Display Infectious Disease: Coronavirus (COVID-19)(PCR) Negative (Negative) 05/20/21 11:14 09/23/21 Coronavirus 2019 Source Nasal/Nares 05/20/21 11:14 05/20/21 Blood Cultures: No Data to Display Toxicology Panel: Urine Amphetamines Screen Negative (Negative) 05/17/21 10:15 05/17/21 Urine Benzodiazepines Screen Negative (Negative) 05/17/21 10:15 05/17/21 Urine Barbiturates Screen Negative (Negative) 05/17/21 10:15 05/17/21 Urine Cocaine Screen Negative (Negative) 05/17/21 10:15 05/17/21 Urine Methadone Screen Negative (Negative) 05/17/21 10:15 05/17/21 Urine Opiates Screen Negative (Negative) 05/17/21 10:15 05/17/21 Ur Tricyclic Antidepressants Screen Negative (Negative) 05/17/21 10:15 05/17/21 Ur Tetrahydrocannabinol (THC) Scrn Negative (Negative) 05/17/21 10:15 05/17/21 Panel: No Data to Display Anesthesia Assessment and Plan Anesthesia History Personal History: No History of Anesthesia Complications Family History: No Family History of Anesthesia Complications Exercise Tolerance Exercise Tolerance: Metabolic Equivalents>4 Cardiac & Pulmonary Exam Cardiac Exam: Normal S1/S2 Heart Sounds Pulmonary Exam: Clear Bilateral Breath Sounds Airway Exam Known Difficult Airway: No Mallampati Class: 3 Mouth Opening: Normal (> 3cm) Thyromental Distance: Greater than 3 cm Neck Range of Motion: Full ROM Neck Circumference: Normal Teeth Condition: Normal Dentition ASA Classification ASA Score: ASA 2 Emergency Case?: No NPO Status NPO Status: Full Stomach Status Status: Other Anesthesia Plan Resuscitation Status: Full Code Anesthesia Technique: Epidural Anesthesia Airway Planned: Natural Airway Monitors Used: Standard Monitors Preoperative Comments:: 25 yo for induction of labor requesting epidural. Sig PMHx: heartburn (tums/prevacid), sciatica, hx of pre eclampsia, anxiety, hy pothyroid (currently with normal TSH), vapes nicotine.
--- NOTE | 2021-05-20 20:34 | W.ANESNEU ---
Epidural/Spinal Catheter Date Performed: 05/20/21 Procedure Start: 08:15 Procedure Stop: 08:41 Requesting Provider: Brooke Morales Procedure Location: Obstetrics Reason Performed: Labor Epidural Standard Monitors Applied: Blood Pressure and SpO2 Patient Position: Sitting Sedation Given (Indicate Dose Given): No Sedation given Patient Mental Status: Awake Sterility: Hand Hygiene, Surgical Cap, Surgical Mask, Sterile Gloves and Sterile Drape/Sheet Procedure Location: L3-L4 Interspace Epidural Needle: Tuohy 17 Guage Needle Length: 3.5 Inch Needle Approach: Midline Epidural Procedure: Skin Prepped, Sterile Drape Placed, 1% Lidocaine to skin and subcutaneous tissue with 25G needle, Tuohy Needle placed and MURALI to Saline Used Catheter Placed?: Catheter Placed Test Dose (Indicate Dose Given): 3ml 1.5% Lidocaine with 1:200K Epinephrine Given Loss of Resistance Depth (cm): 6 Catheter depth at skin (cm): 12 Dressing: Sorbaview Dressing Placed and Mastisol Used Epidural Provider Bolus (Indicate Dose Given): Total Ropivacaine 0.1% with Fentanyl 2mcg/ml Given from pump (ml) Dose:: 12 mL Additives (Indicate Dose Given ): None Infusion Medication: Medication Infusion Began Medication Infusion: Ropivacaine 0.1% with Fentanyl 2mcg/ml Maintenance Infusion Rate (ml/hour): 12 PCEA Bolus Dose (ml): 5 Block Level: N/A Paresthesia: None Ultrasound: Not Used Number of Attempts (See previous attempts in note section): 2 Procedure Tolerated: No Complications Procedure Outcome: Successful Procedure Comment:: Attempt 1 with MURALI that was not convincing. needle was removed, and attempt 2 was same interspace but advanced passed previous ?MURALI. A much more convincing MURALI was obtained and catheter was threaded without difficulty. test dose: negative. Loading dose: 7 mL + 5 mL (12 mL total) After load patient appears more comfortable through contractions, but still uncomfortable. States that her pressure is in her lower back/tailbone. She was educated on the PCEA function of the epidural pump. Performed By: Nabor Valdes
--- NOTE | 2021-05-20 21:12 | PLAC_PTH ---
PATIENT: Tanisha Goodwin LOC: OBS U#:[id number] AGE/SX: 25/F ROOM: OBS.300 RE05/20/[address]: Brooke Morales : 1995 BED: A DIS: 05/22/2021 SPEC #: [id number] RECD: 05/21/21 12:33 STATUS: MIKE REQ #: [id number] MARIANNA: 05/20/21 21:[address]: Brooke Morales DEPT: Surgical Specimen RECD BY: Hailey Nelson ENTERED: 05/21/21 12:34 SP TYPE: PLAC OTHR DR: Debra Mujica APRN Tissues: 1 - PLACENTA (3RD TRIMESTER) Procedures: GROSS AND MICRO LEVEL 5 Comments: [id number]
[2021-05-21] VITALS (9 sets, daily range): BP systolic 113–128; BP diastolic 41–84; PULSE 77–107; RESP 16–18; TEMP 36.7–37; TEMPC 36.7; O2SAT 95–99
[2021-05-21] MEDS: Normal Saline Flush 10 ML SYR IVP (01:01)
--- NOTE | 2021-05-21 07:27 | OBVDS_ITS ---
Date of service: 05/21/21 Time of Service: 07:27 OB Labor/ Delivery Information Providers Doctor: Brooke Morales Electrodynamicist: Nabor Valdes Nurse: Stacie Mccallum Nurse: Karen Coffey Labor/Delivery Information Number of Babies in Womb: 1 Steroids Given: None Reason Steroids Not Administered: N/A Group Beta Strep: Positive Antibiotics Administered: Yes Number of Doses of Antibiotics: 3 Rubella Status: Immune Blood Type: B+ Varicella Immunity: Immune Maternal Complications: None Stages of Labor Onset of Labor Date: 05/20/21 Onset of Labor Time: 18:00 Complete Dilatation Date: 05/20/21 Complete Dilatation Time: 20:55 Labor - Stage 1 Duration: 0 minutes ROM Baby A: 05/20/21 ROM Baby A: 16:37 ROM Total Time- Baby A: [id number] Delivery Date-Baby A: 05/20/21 Infant Delivery Time-Baby A: 21:02 Labor Stage 2 Duration: 7 minutes Placenta Delivery Date-Baby A: 05/20/21 Placenta Delivery Time-Baby A: 21:10 Labor-Stage 3 Duration: 8 minutes Total Length of Labor-Baby A: 3 hours and 2 minutes Placenta Cultured: Yes Placenta Status: Delivered Baby A Infant Gender: Female Gestational Status: Early Term (37-38.6 wks) Gestational Age in Weeks/Days: 37 Weeks and 0 Days weight: 7 lb 10.93 oz Length-Baby A: 19.75 in Head Circumference-Baby A: 13.75 in Score-1 Minute Interval(Baby A) Heart Rate-1 minute: 100 BPM or Greater Respiratory Effort- 1 minute: Spontaneous/Strong Cry Muscle Tone-1 minute: Active Movement Reflex Response-1 minute: Prompt Response Color-1 minute: Bluish Hands or Feet Total Score-1 minute: 9 Score-5 Minute Interval(Baby A) Heart Rate- 5 minute: 100 BPM or Greater Respiratory Effort-5 minute: Spontaneous/Strong Cry Muscle Tone-5 minute: Active Movement Reflex Response-5 minute: Prompt Response Color-5 minute: Bluish Hands or Feet Total Score- 5 minute: 9 Procedure Procedures: Other (no procedures after delivery - Standard administration of Oxytocin after delivery of infant) Interventions Pain Management Interventions: Epidural Epidural placed during transition of labor. It was effective but did not provide complete relief . ./ Induction Indication: Other (stable cholestasis of ) , Type of Induction: Pitocin , Induction Note: for stable cholestasis of ./ Repair of Laceration Type: None , Laceration Extension: N/A . Sponge Count Correct: Yes , Sharp Count Correct: Yes .
[2021-05-21] MEDS: Sertraline 50 MG TAB PO (08:04)
[2021-05-21] MEDS: Acetaminophen 325 MG TAB 650 MG PO (08:04)
--- NOTE | 2021-05-21 08:11 | W.ANESPOSTOP ---
Postoperative Evaluation Date, Time and Location Date Performed: 05/21/21 Time Performed: 08:13 Patient Location: Obstetrics Vital Signs Most Recent Imported Vital Signs: Most Recent Vital Signs Temp Pulse Resp BP Pulse Ox 36.8 C 107 H 16 113/76 99 05/21/21 06:28 05/21/21 06:28 05/21/21 06:28 05/21/21 06:28 05/21/21 06:28 Most Recent Manually Entered Vital Signs: Adult Blood Pressure: 125/41 Heart Rate: 101 Respirations: 18 Oxygen Saturation (%): 98 Temperature (C): 36.7 C Pain Score (0-10 Scale): 0 Pain Score Most Recent Pain Score: Most Recent Pain Score Pain Level 4 05/21/21 08:04 Assessment Mental Status: Awake (Alert & Oriented to Patient Baseline) Airway and Respiratory Function: Patent airway with normal (patient baseline) respiratory exam Cardiovascular Function: Hemodynamically Stable Hydration Status: Adequately Hydrated Nausea & Vomiting: No Nausea or Vomiting Pain: Pt. Denies Any Pain Peripheral Nerve Block: Patient did not receive a nerve block
[2021-05-21 08:28] LABS: ALT 18 U/L (14-59); AST 19 U/L (15-37); Albumin 2.4 g/dL (3.4-5.0); Alkaline Phosphatase 113 U/L (46-116); Anion Gap 13.3 mmol/L (3-11); BUN 5 mg/dL (7-18); Bilirubin, Total 0.6 mg/dL (0.2-1.0); CO2 21.7 mmol/L (21.0-32.0); CREATININE 0.6 mg/dL (0.55-1.02); Calcium 8.6 mg/dL (8.5-10.1); Chloride 105 mmol/L (98-107); Glucose 151 mg/dL (74-106); Potassium 3.6 mmol/L (3.5-5.1); Sodium 140 mmol/L (136-145); Total Protein 5.9 g/dL (6.4-8.2)
--- NOTE | 2021-05-21 17:18 | OBPPV_ITS ---
Date of service: 05/21/21 Time of Service: 17:18 Assessment and Plan Assessment and plan (1) Cholestasis during , antepartum: Status: Acute (2) Normal spontaneous vaginal delivery: Status: Acute Assessment and plan: Patient is day #1 status post normal spontaneous vaginal delivery after induction of labor for intrahepatic cholestasis of . She is doing well. She and her baby are working on breast-feeding. Anticipate discharge home when baby is stable. (3) HRP (high risk ): Status: Acute Subjective Subjective Interval history: Patient seen today doing well no issues. Breast-feeding without difficulty Patient comments: No complaints and Pain well controlled baby status: Doing well [place] feeding status: Exclusively breast feeding Exam Physical Exam Vital signs: Temp Pulse Resp BP Pulse Ox 98.6 F 83 16 120/82 97 05/21/21 15:34 05/21/21 15:34 05/21/21 15:34 05/21/21 15:34 05/21/21 15:34 Neck Exam Neck Exam: Normal Respiratory Exam Respiratory Exam: Normal Cardiovascular Exam Cardiovascular Exam: Normal Fundal Exam Fundus: Below Umbilicus and Firm Extremities Exam Extremity Exam: Normal Results Hemoglobin/Hematocrit: Hgb 11.3 g/dL (11.2-15.7) 05/20/21 11:50 Hct 33.0 % (36.0-46.0) L 05/20/21 11:50 Abnormal Lab Findings: Abnormal Labs 05/20/21 05/21/21 11:50 07:50 RBC 3.91 L Hct 33.0 L Anion Gap 13.3 H BUN 5 L Glucose 151 H Total Protein 5.9 L Albumin 2.4 L
[2021-05-21] MEDS: Docusate Sodium 100 MG CAP PO (20:37)
--- NOTE | 2021-05-22 10:33 | W.PM.OBPNV1 ---
Date of service: 05/22/21 Time of Service: 10:33 Assessment and Plan Assessment and plan (1) Normal spontaneous vaginal delivery: Status: Acute Assessment and plan: day #2 status post normal spontaneous vaginal delivery after induction at 37 weeks for intrahepatic cholestasis. Doing well. Breast-feeding without difficulty. No signs or symptoms. Blood pressure stable. Will discharge home today. Follow-up in the office in 2 weeks as scheduled. Subjective Subjective Patient comments: No complaints, Pain well controlled and Tolerating diet baby status: Doing well, Nursing well and Strong Bonding Observed feeding status: Exclusively breast feeding Exam Physical Exam Vital signs: Temp Pulse Resp BP Pulse Ox 98.2 F 78 16 122/76 99 05/21/21 20:35 05/21/21 20:35 05/21/21 20:35 05/21/21 20:35 05/21/21 20:35 Vital Signs Reviewed: Yes Constitutional Constitutional: no acute distress HEENT Exam HEENT Exam: Normal Neck Exam Neck Exam: Normal Respiratory Exam Respiratory Exam: Normal Cardiovascular Exam Cardiovascular Exam: Normal Abdominal Exam Comments: Soft, nontender Fundal Exam Fundus: Below Umbilicus and Firm Extremities Exam Extremity Exam: Normal Neurological Exam Neurological Exam: Normal Psychiatric Exam Psychiatric Exam: Normal Results Hemoglobin/Hematocrit: Hgb 11.3 g/dL (11.2-15.7) 05/20/21 11:50 Hct 33.0 % (36.0-46.0) L 05/20/21 11:50 Abnormal Lab Findings: Abnormal Labs 05/20/21 05/21/21 11:50 07:50 RBC 3.91 L Hct 33.0 L Anion Gap 13.3 H BUN 5 L Glucose 151 H Total Protein 5.9 L Albumin 2.4 L
--- NOTE | 2021-05-22 10:37 | W.PM.OBDISCH ---
Date of service: 05/22/21 Time of Service: 10:37 DS: Diagnosis Discharge Diagnosis (1) Normal spontaneous vaginal delivery: Status: Acute Discharge Plan Disposition Patient Disposition: HOME Condition: Good Discharge Details Reason For Visit: Induction of Labor, normal spontaneous vaginal del Admit Date/Time: 05/20/21 09:50 Admit Provider: Brooke Morales Attending Provider: Brooke Morales Primary Care Provider: Debra Mujica Hospital Course Hospital Course: Patient was admitted at 37 weeks for labor induction. She received Pitocin augmentation of labor and artificial rupture of membranes. She went on to the point that she delivered a viable female via normal spontaneous vaginal delivery. She had no postoperative complications. She discharged home day #2. She is doing well. Breast-feeding without difficulties Home Meds and New Rx's Prescriptions: New ibuprofen 800 mg tablet 800 mg PO Q8H PRNQty: 30 RF: 1 Continued prenat.vits,kenn,tez-eali-zghcd tablet 1 tab PO DAILY Qty: 90 RF: 6 sertraline 50 mg tablet 50 mg PO DAILY Qty: 90 RF: 3 hydroxyzine pamoate [Vistaril] 25 mg capsule 25 mg PO TID PRN (Reason: itching) Qty: 60 RF: 3 lansoprazole [Prevacid] 30 mg capsule,delayed release(DR/EC) 30 mg PO DAILY Qty: 60 RF: 3 Discontinued ursodiol 500 mg tablet 500 mg PO BID Qty: 180 RF: 3 aspirin 81 mg tablet,chewable 162 mg PO DAILY Qty: 90 RF: 4 Discharge Instructions Stand Alone Forms: BC Post Vaginal Deliver Activity:: Activity as Tolerated Equipment/Supplies:: No Equipment Needed Diet:: As Tolerated Discharge Orders Discharge Orders: Discharge Order (Routine); Ordered 05/22/21 Ordered By: Wendi Toro OB:DS Summary Summary Episiotomy Description: Other Laceration Description: None Laceration Extension: N/A Contraception Discussed Contraception Discussed: Yes, [place] Infant Gender-Baby A: Female weight: 7 lb 10.93 oz Status at Discharge Functional status at discharge: independent ambulation Overall status at discharge: patient is back to baseline Mental Status: mental status grossly normal Speech and Movement: speech and movement normal Mood: congruent mood Affect: normal affect Exam Physical Exam Vital signs: Temp Pulse Resp BP Pulse Ox 98.2 F 78 16 122/76 99 05/21/21 20:35 05/21/21 20:35 05/21/21 20:35 05/21/21 20:35 05/21/21 20:35 Vital Signs Reviewed: Yes Narrative: See progress note dated 05/22/2021 [facility] Medical History (Updated 05/21/21 @ 17:19 by Wendi Toro DO) Anxiety Bipolar disorder 11/15/18 pt off Vraylar due to per Nidia Hernandez [employer]. Has seen a therapist in the past. Depressive disorder GERD (gastroesophageal reflux disease) during 3rd trimester of Group B Streptococcus carrier, +RV culture, currently HRP (high risk ) Hypothyroidism diagnosed age 19 after she gained a lot of weight with one of her bipolar medication; 2020: normal TSH off Levothyroxine for months; monitor Insomnia Irritable bowel syndrome Normal spontaneous vaginal delivery Seasonal affective disorder Vitamin B12 deficiency (non anemic) Surgical History History of removal of ovarian cyst Family History Paternal Grandfather Hypertension Father Hypercholesterolemia Hypertension Mother Thyroid disorder Hypertension Hypercholesterolemia Immunodeficiency disorder Maternal Grandmother Thyroid disorder Heart disease Paternal Grandmother Diabetes Depression Sister Acute Crohn's disease Social History (Updated 05/20/21 @ 16:35 by Brooke Morales MD) Smoking/Tobacco Use Status: Former Tobacco Use Tobacco: How many years used: 10 Smokeless tobacco user: other (vaping) Quit status: has quit before Smoking risk assessment performed?: Yes Alcohol Intake: former Details: mixed drinks (rum with mountain dew) Substance use type: does not use Caregiver/Support person: No Household members: spouse and other Details: Michelle-Alejo Hodges Housing: apartment Number of Children: 1 Communication Needs: None 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 What type of physical activity do you participate in: walking Seatbelt use: always Helmet use: Yes Drive intox or ride w/intox mobile lounge driver or operator: No Working smoke detector in home: Yes Fire extinguisher in home: No Carbon monox detector in home: Yes Firearms in home: No Do you feel safe at home: Yes Do you feel safe in your relationship?: Yes Female Reproductive History Menstrual control method: progestin IUCD History History 2 Para 1 Hx # Term Pregnancies 1 Multiple births 0 Hx # Pregnancies 0 Ectopic pregnancies 0 AB induced 0 Hx Number of Living Children 1 AB spontaneous 0 Past Pregnancies Del. Date GA/Weeks # Outcome Route Wgt Sex Labor Lgth Anesthesia Location Prov Complic 07/16/19 40 No Successful vaginal 8 lb 5 oz Female 3 hrs 58 min [facility] - Ramirez, FRANNIE Delivery Date: 07/16/19 Induced due to Gestational HTN; [place], oxytocin, right labial laceration, repaired, didn't like nitrous. [place]. Brooke Morales DS: Data Vitals/I&O Vitals and I&O: Vital Signs Temperature 98.2 F 05/21/21 20:35 Pulse 78 05/21/21 20:35 Pulse Rhythm Regular 05/21/21 20:35 Respiratory Rate 16 05/21/21 20:35 Respiratory Depth Normal 05/21/21 20:35 Blood Pressure 122/76 05/21/21 20:35 Blood Pressure Mean 91 05/21/21 20:35 Pulse Oximetry 99 05/21/21 20:35 Oxygen Delivery Method Room Air 05/20/21 10:23 Oxygen Flow Rate 0 05/20/21 10:23 Pain Level 2 05/21/21 20:35 Comment 05/20/21 20:00 Intake & Output 05/21/21 05/21/21 05/22/21 11:59 23:59 11:59 Intake Total 1535 / 1535 Output Total 2200 / 2200 Balance -665 / -665 Intake: IV 1535 / 1535 Output: Urine 2200 / 2200 Other: Urine Color Yellow Yellow
[2021-05-22 10:55] VITALS: BP 123/84; PULSE 107; RESP 16; TEMP 36.5
== END 2021-05-22 11:15 | disposition home or self-care (01) | DRG 806 ==
PROVIDERS: Admitting Provider Obstetrics & Gynecology Gynecology; PCP Nurse Practitioner Adult Health; Visit Provider Obstetrics & Gynecology Gynecology
DX: O26.62 Liver and biliary tract disorders in childbirth (principal); O99.354 Diseases of the nervous system complicating childbirth; Z37.0 Single live birth; O99.824 Streptococcus B carrier state complicating childbirth; Z3A.37 37 weeks gestation of pregnancy; O99.344 Other mental disorders complicating childbirth; F32.89 Other specified depressive episodes; O99.62 Diseases of the digestive system complicating childbirth; O99.284 Endocrine, nutritional and metabolic diseases complicating childbirth; E03.9 Hypothyroidism, unspecified; E53.8 Deficiency of other specified B group vitamins; K58.9 Irritable bowel syndrome, unspecified; G47.00 Insomnia, unspecified
CPT/HCPCS: 36415; 80053; 85027; 86850; 86900; 86901; 87635; 88307; J2540

== ENCOUNTER 2021-11-01 10:20 | Outpatient (REF) | payer BC, SELFPAY ==
--- NOTE | 2021-11-01 09:30 | PAPFT_PTH ---
PATIENT: Tanisha Goodwin LOC: N U#:[id number] AGE/SX: 26/F ROOM: RE11/01/[address]: Faiza Oro NP : 1995 BED: DIS: 11/01/2021 SPEC #: [id number] RECD: 11/01/21 13:02 STATUS: MIKE ASHRAF #: [id number] MARIANNA: 11/01/21 09:[address]: Faiza Oro NP DEPT: [facility] Cytology RECD BY: Hailey Nelson ENTERED: 11/01/21 13:02 SP TYPE: PAPFT OT DR: Debra Mujica APRN Tissues: 1 - CX/ENDOCX FOR PAP SMEARS Procedures: PAP THIN PREP/[facility] Screening Comments: [id number]
== END 2021-11-01 10:21 | disposition home or self-care (01) ==
LOC: LBN 10:20
PROVIDERS: PCP Nurse Practitioner Adult Health; Visit Provider Nurse Practitioner Women's Health
DX: Z12.4 Encounter for screening for malignant neoplasm of cervix (principal)
CPT/HCPCS: 88142

== ENCOUNTER 2022-07-29 15:29 | Outpatient (REF) | payer BC, SELFPAY | END 2022-07-29 15:30 | disposition home or self-care (01) | LOC: LBN 15:29 | PROVIDERS: PCP Nurse Practitioner Adult Health; Visit Provider Nurse Practitioner Adult Health | DX: J02.9 Acute pharyngitis, unspecified (principal) | CPT/HCPCS: 87070 ==

== ENCOUNTER 2022-10-13 02:07 | Outpatient (CLI) | payer BC, SELFPAY ==
[2022-10-13 14:08] LABS: Abs Immature Grans 0.03 10^3/uL (0.0-0.06); Absolute Basophil Count 0.05 10^3/uL (0.0-0.2); Absolute Eosinophil Count 0.08 10^3/uL (0.0-0.7); Absolute Lymphocyte Count 2.76 10^3/uL (1.2-3.4); Absolute Monocyte Count 0.35 10^3/uL (0.1-0.8); Absolute Neutrophil Count 5.21 10^3/uL (1.2-6.7); Basophils % 0.6; Eosinophils % 0.9; HCT 42.3 % (36.0-46.0); Immature Grans % 0.4; Lymphocytes % 32.5; MCH 26.5 pg (27.0-33.0); MCHC 33.1 % (32.0-36.0); MCV 80 fL (80-95); MPV 9.6 fL (8.0-11.0); Monocytes % 4.1; Neutrophils % 61.5; Platelet Count 337 10^3/uL (130-400); RBC 5.28 10^6/uL (3.93-5.22); RDW 13.3 % (11.7-14.6); WBC 8.48 10^3/uL (4.4-10.8)
[2022-10-13 15:17] LABS: ALT 15 U/L (14-59); AST 12 U/L (15-37); Albumin 4.1 g/dL (3.4-5.0); Alkaline Phosphatase 88 U/L (46-116); BUN 12 mg/dL (7-18); Bilirubin, Total 1.2 mg/dL (0.2-1.0); CREATININE 0.6 mg/dL (0.55-1.02); Calcium 9.2 mg/dL (8.5-10.1); Chloride 104 mmol/L (98-107); Estimated GFR 126.87 (mL/min/1.73m2); Folate 12.6 ng/mL (8.6-20.0); Glucose 99 mg/dL (74-106); Sodium 140 mmol/L (136-145); Vitamin B12 710 pg/mL (193-986)
[2022-10-13 15:43] LABS: Vitamin D 25 Total 14.5 ng/mL (30-100)
== END 2022-10-13 02:08 | disposition home or self-care (01) ==
PROVIDERS: PCP Nurse Practitioner Adult Health; Visit Provider Nurse Practitioner Adult Health
DX: R53.83 Other fatigue (principal); E55.9 Vitamin D deficiency, unspecified; Z77.011 Contact with and (suspected) exposure to lead
CPT/HCPCS: 36415; 80053; 82306; 82607; 82746; 83655; 84443; 85025

== ENCOUNTER 2022-11-05 22:26 | Emergency (ER) | payer BC, SELFPAY ==
[2022-11-05 22:43] VITALS: BP 111/74; PULSE 144; RESP 18; TEMP 36.4; O2SAT 97
--- NOTE | 2022-11-05 22:51 | W.ED.GENAD ---
Discharge Plan Disposition Patient Disposition: Home Condition: Good Discharge Details Clinical Impression: Nausea & vomiting, Gastroenteritis Primary Care Provider: Debra Mujica ED Provider: Thomas Bradley Home Meds and New Rx's Prescriptions: Continued prenat.vits,kenn,uvh-rcab-digxd tablet 1 tab PO DAILY Qty: 90 6RF fluticasone propionate 50 mcg/actuation spray,suspension 2 spray intranasal DAILY PRN (Reason: congestion) Qty: 16 2RF Rx Instructions: administer into each nostril cholecalciferol (vitamin D3) 50 mcg (2,000 unit) capsule 2,000 unit PO DAILY Qty: 90 3RF Rx Instructions: Vit D deficiency cholecalciferol (vitamin D3) 1,250 mcg (50,000 unit) capsule 1,250 mcg PO QWEEK Qty: 8 0RF Rx Instructions: Vitamin D deficiency Discharge Instructions Instructions: Ondansetron (By mouth), Acute Nausea and Vomiting (ED) Additional Instructions: Please drink frequent small sips of water over the next few days. Avoid any solids, or greasy food. Please take the Zofran as needed for nausea. If you notice any worsening of your symptoms, or any new symptoms such as vomiting, diarrhea, fever, chills, shortness of breath, chest pain, numbness, weakness, or fainting , please return immediately to the emergency department for reevaluation. Please follow up with your primary care provider as soon as possible for reassessment and reevaluation. As always, it was a pleasure participating in your medical care today. Referrals: Debra Mujica, [employer] OFF[employer] [Primary Care Provider] - Medical Decision Making 27-year-old female with a past medical history of bipolar disorder, depression, anxiety, hypothyroidism, previous ovarian cyst, presents today for nausea and vomiting that began 4 hours ago. She admits to generalized abdominal achiness. She admits to mild diarrhea. She did see small few speckles of blood in one of her last episodes of vomiting. She denies any hematemesis frankly or hematochezia frankly. Of note her youngest child did have identical symptoms 2 days ago, and the vomiting diarrhea resolved on its own after about 24 hours. Additionally at this time one of the other children also now has identical symptoms that began at the same time at the mother's. No other complaints at this time. No other modifying factors. Exam demonstrates a well-appearing but slightly dehydrated female. Mucous membranes are dry, she is mildly tachycardic. No signs of an acute surgical abdomen on exam. Suspect a viral gastroenteritis similar to her other family members. Will give Zofran and rehydrate with normal saline and LR. We will monitor closely and reassess. No evidence of acute surgical abdomen requiring emergent imaging at this time. 12:20 AM On reassessment the patient is doing much better. She has been able to tolerate p.o. well without any difficulty. She does demonstrate a mild white count, elevation in her hemoglobin as well suggestive of hemoconcentration. No bandemia. Electrolytes are all stable, mild anion gap, creatinine is slightly elevated at 1.2, bilirubin is also elevated at 1.9, lipase is normal. However previous bilirubin was also elevated on past visit. Repeat exam shows no evidence of right upper quadrant tenderness, negative Flores sign. No pain in the right upper quadrant either on reassessment. Patient states that she feels much better and feels comfortable going home. I did discuss getting a CT image, as no ultrasound is available at this time, and weighing the risks and benefits the patient has decided to hold off on any CT imaging. She feels well. Patient will be discharged home with a bottle of Zofran. She has been rehydrated with 2 L of normal saline. Vital signs stable. Suspect gastroenteritis, similar to the patient's 2 children's most recent symptoms and etiologies. I have extensively reviewed the treatment plan and discharge instructions with the patient and their family. I have addressed all patient concerns at this time. The patient and family was made aware of what symptoms to monitor for that would warrant a return to the emergency department. Discussed the plan with the patient and family, they demonstrate verbal understanding and agreement with our assessment and plan at this time. The documentation in this chart was dictated using [employer] dictation software. Please excuse any dictation errors. HPI General Date/Time Provider Initiated Documentation: 11/05/22 22:30. HPI Narrative: 27-year-old female with a past medical history of bipolar disorder, depression, anxiety, hypothyroidism, previous ovarian cyst, presents today for nausea and vomiting that began 4 hours ago. She admits to generalized abdominal achiness. She admits to mild diarrhea. She did see small few speckles of blood in one of her last episodes of vomiting. She denies any hematemesis frankly or hematochezia frankly. Of note her youngest child did have identical symptoms 2 days ago, and the vomiting diarrhea resolved on its own after about 24 hours. Additionally at this time one of the other children also now has identical symptoms that began at the same time at the mother's. No other complaints at this time. No other modifying factors. Related Data Home Medications Medication Instructions Recorded Confirmed prenat.vits,kenn,rqf-ojoz-yirab 1 tab PO DAILY #90 tabs 11/08/18 10/10/22 fluticasone propionate 50 2 spray intranasal DAILY PRN 07/29/22 10/10/22 mcg/actuation nasal congestion #16 grams spray,suspension cholecalciferol (vitamin D3) 1,250 1,250 mcg PO QWEEK #8 caps 10/18/22 mcg (50,000 unit) capsule cholecalciferol (vitamin D3) 50 2,000 unit PO DAILY #90 caps 10/18/22 mcg (2,000 unit) capsule Previous Rx's Medication Instructions Recorded prenat.vits,kenn,zxm-hgqa-xdzfb 1 tab PO DAILY #90 tabs 11/08/18 fluticasone propionate 50 2 spray intranasal DAILY PRN 07/29/22 mcg/actuation nasal congestion #16 grams spray,suspension cholecalciferol (vitamin D3) 1,250 1,250 mcg PO QWEEK #8 caps 10/18/22 mcg (50,000 unit) capsule cholecalciferol (vitamin D3) 50 2,000 unit PO DAILY #90 caps 10/18/22 mcg (2,000 unit) capsule Allergies Allergy/AdvReac Type Severity Reaction Status Date / Time venom-wasp Allergy Unknown Hives Verified 10/10/22 13:01 lamotrigine [From Lamictal] AdvReac Skin Rash Verified 10/10/22 13:01 General Stated Complaint: Abd Prob OLIVE: 3 Review of Systems All systems reviewed & are unremarkable except as noted in HPI and below PFSH All Active Problems (Updated 11/06/22 @ 00:23 by Thomas Bradley DO) Nausea & vomiting (Acute) Gastroenteritis (Acute) Hypothyroidism (Chronic) diagnosed age 19 after she gained a lot of weight with one of her bipolar medication; 2020: normal TSH off Levothyroxine for months as pt stopped; monitor Vitamin D deficiency (Acute ~09/2022) BMI 30.0-30.9,adult (Acute ~2020) Bipolar disorder (Chronic ~2020) [facility] Psychiatry manages Depressive disorder (Chronic ~2020) [facility] psychiatry Anxiety (Chronic ~2020) [facility] psychiatry Medical History Breast lump Cholestasis during , antepartum Insomnia Irritable bowel syndrome Seasonal affective disorder Sore throat Vitamin B12 deficiency (non anemic) Vulvar edema Surgical History History of removal of ovarian cyst Family History Paternal Grandfather Hypertension Father Hypercholesterolemia Hypertension Mother Thyroid disorder Hypertension Hypercholesterolemia Immunodeficiency disorder Diabetes Maternal Grandmother Thyroid disorder Heart disease Paternal Grandmother Diabetes Depression Sister Acute Crohn's disease Social History Smoking/Tobacco Use Status: Current every day Tobacco Type: e-cigarettes Tobacco: How many years used: 10 Smokeless tobacco user: other (vaping) Quit status: has quit before Smoking risk assessment performed?: Yes Alcohol Intake: current Alcohol Intake frequency: a few times a month Details: mixed drinks (rum with mountain dew) Substance use type: does not use Adopted: No Caregiver/Support person: No Foster care: No Household members: spouse, children and other Details: Christy Cook D-Ellie Housing: house Number of Children: 2 Communication Needs: None and Corrective Lenses Education Level: high school Do you need help understanding health information?: Never 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 Pets and animals: Yes (2) Pets and animals: cat(s) Sexually active: Yes Do you think of yourself as: straight/heterosexual Current gender identity: female What is your relationship status?: How often do you talk on the phone with friends or family?: three or more times per week How often do you get together with friends or relatives?: once per week How often do you attend uatsdin or sabianism services?: 4 or more times per year Do you belong to any clubs or organized social groups?: no Panel score (0-1 are the most socially isolated patients): 3 What type of physical activity do you participate in: none Radha/Uatsdin: Oriental Orthodox Special radha needs: No Seatbelt use: always Helmet use: Yes Drive intox or ride w/intox spotter driver: No Working smoke detector in home: Yes Fire extinguisher in home: No Carbon monox detector in home: Yes Firearms in home: No Do you feel safe at home: Yes Do you feel safe in your relationship?: Yes Female Reproductive History Menstrual control method: progestin IUCD History History 2 Para 2 Hx # Term Pregnancies 2 Multiple births 0 Hx # Pregnancies 0 Ectopic pregnancies 0 AB induced 0 Hx Number of Living Children 2 AB spontaneous 0 Past Pregnancies Del. Date GA/Weeks # Preg Succ Route Wgt Sex Labor Lgth Anesthesia Location Prov Complic 07/16/19 40 No vaginal 3770.487 g Female 3 hrs 58 min [facility], [facility] 05/21/21 37 No vaginal 3484.156 g Female [facility] Delivery Date: 07/16/19 Last Updated by: Brooke Morales M.D. Induced due to Gestational HTN; Mendez, oxytocin, right labial laceration, repaired, didn't like nitrous. [facility] Delivery Date: 05/21/21 Last Updated by: Brooke Morales M.D. cholestasis in 3rd trimester. IOL @ 37w. D. Mis Dillard. Exam Narrative Exam Narrative: 1.Const: Well-nourished, Well-developed, appearing stated age 2.Eyes: PERRL, no conjunctival injection, and symmetrical lids. 3.ENT: Atraumatic external nose and ears. Notably dry MM. Neck: Symmetric, trachea midline, No thyromegaly. 4.CVS: +S1/S2, No murmurs or gallops. Peripheral pulses 2+ and equal in all extremities. Brisk capillary refill in all extremities. 5.RESP: Unlabored respiratory effort. Clear to auscultation bilaterally. No wheezes rales or rhonchi 6.GI: Soft, Nontender/Nondistended, No hepatosplenomegaly. No guarding or rebound. No pain to McBurney's point, negative Flores sign. 7.MSK: Normocephalic/Atraumatic, Extremities w/o deformity or ttp No cyanosis or clubbing, Normal movement of all extremities 8.Skin: Warm, Dry. No rashes or lesions. 9.Neuro: diet kitchen cook II-XII grossly intact. Sensation grossly intact, no focal neurologic deficits. 10.Psych: (AAO) x3. Appropriate mood and affect Course Vital Signs Vital signs: Vital Signs Temperature 36.4 C L 11/05/22 22:43 Pulse 144 H 11/05/22 22:43 Respiratory Rate 18 11/05/22 22:43 Blood Pressure 111/74 11/05/22 22:43 Pulse Oximetry 97 11/05/22 22:43 Temperature 36.4 C L 11/05/22 22:43 Temperature Source Oral 11/05/22 22:43 Pulse 144 H 11/05/22 22:43 Respiratory Rate 18 11/05/22 22:43 Blood Pressure 111/74 11/05/22 22:43 Pulse Oximetry 97 11/05/22 22:43 Oxygen Delivery Method Room Air 11/05/22 22:43 Oxygen Flow Rate 0 11/05/22 22:43
[2022-11-05] MEDS: Ondansetron 4 MG/2 ML VIAL IVP (22:54)
[2022-11-05] MEDS: Lactated Ringers 1,000 ML 1000 ML IV (22:57)
[2022-11-05 23:01] LABS: Abs Immature Grans 0.05 10^3/uL (0.0-0.06); Absolute Eosinophil Count 0.02 10^3/uL (0.0-0.7); Absolute Lymphocyte Count 0.62 10^3/uL (1.2-3.4); Absolute Monocyte Count 0.77 10^3/uL (0.1-0.8); Absolute Neutrophil Count 13.64 10^3/uL (1.2-6.7); Basophils % 0.5; Eosinophils % 0.1; HCT 50.7 % (36.0-46.0); HGB 17.5 g/dL (11.2-15.7); Immature Grans % 0.3; Lymphocytes % 4.1; MCH 26.9 pg (27.0-33.0); MCHC 34.5 % (32.0-36.0); MCV 78 fL (80-95); MPV 10.5 fL (8.0-11.0); Monocytes % 5.1; Neutrophils % 89.9; Platelet Count 377 10^3/uL (130-400); RBC 6.51 10^6/uL (3.93-5.22); RDW 13.3 % (11.7-14.6); RDW-SD 37.2 fL; WBC 15.17 10^3/uL (4.4-10.8)
[2022-11-05 23:02] LABS: Absolute Basophil Count 0.08 10^3/uL (0.0-0.2)
[2022-11-05 23:21] LABS: ALT 19 U/L (14-59); AST 15 U/L (15-37); Albumin 4.9 g/dL (3.4-5.0); Alkaline Phosphatase 92 U/L (46-116); BUN 17 mg/dL (7-18); Bilirubin, Total 1.9 mg/dL (0.2-1.0); CREATININE 1.2 mg/dL (0.55-1.02); Calcium 10.1 mg/dL (8.5-10.1); Chloride 101 mmol/L (98-107); Estimated GFR 64.02 (mL/min/1.73m2); Glucose 140 mg/dL (74-106); Lipase 53 U/L (16-77); Potassium 3.8 mmol/L (3.5-5.1); Sodium 138 mmol/L (136-145); Total Protein 9.6 g/dL (6.4-8.2)
[2022-11-06 00:49] VITALS: PULSE 102; RESP 18; O2SAT 96
== END 2022-11-06 00:53 | disposition home or self-care (01) ==
LOC: ER 11-06 01:20
PROVIDERS: Emergency Provider Student in an Organized Health Care Education/Training Program; PCP Nurse Practitioner Adult Health
DX: R11.2 Nausea with vomiting, unspecified (principal); K52.9 Noninfective gastroenteritis and colitis, unspecified; E86.0 Dehydration
CPT/HCPCS: 80053; 83690; 96361; 96374; 99284; 85025; J2405

== ENCOUNTER 2022-12-12 00:45 | Outpatient (CLI) | payer MEDICAID, SELFPAY ==
--- NOTE | 2022-12-12 06:45 | DI.US_ITS ---
Exam(s) US ABDOMEN LIMITED EXAM: US ABDOMEN CLINICAL HISTORY: assess gallbladder,ELEVATED BILIRUBIN, R17, JAUNDICE TECHNIQUE: Ultrasound of complete upper abdomen performed using standard protocol. COMPARISON: FINDINGS: There is no ascites evident. LIVER: There are no hepatic lesions evident nor obvious dilatation of intrahepatic ducts. GALLBLADDER/BILIARY: There are no gallstones. No gallbladder wall edema nor pericholecystic fluid. The common hepatic duct isnot dilated, measuring 3mm at the level of elizabeth hepatis. PANCREAS: There is no evidence of pancreatic mass nor dilatation of the pancreatic duct. SPLEEN: The spleen is not enlarged and there are no intrasplenic lesions evident. KIDNEYS:Kidneys exhibit normal size with no evidence of solid mass, calculus, nor hydronephrosis. No cortical cysts evident. ABDOMINAL AORTA: There is no evidence of abdominal aortic aneurysm. IVC: Normal diameter where visualized. IMPRESSION: 1. No evidence of cholelithiasis nor dilatation of the biliary tree. 2. No other significant ultrasound findings in the upper abdomen. 3. There is no ascites. DATA REPOSITORY:
== END 2022-12-12 01:05 ==
LOC: DI 00:45
PROVIDERS: PCP Nurse Practitioner Adult Health; Visit Provider Nurse Practitioner Adult Health
DX: R17 Unspecified jaundice (principal); E80.6 Other disorders of bilirubin metabolism
CPT/HCPCS: 76705

== ENCOUNTER 2022-12-12 02:25 | Outpatient (CLI) | payer MEDICAID, SELFPAY ==
[2022-12-12 09:29] LABS: Abs Immature Grans 0.01 10^3/uL (0.0-0.06); Absolute Basophil Count 0.03 10^3/uL (0.0-0.2); Absolute Eosinophil Count 0.07 10^3/uL (0.0-0.7); Absolute Monocyte Count 0.31 10^3/uL (0.1-0.8); Basophils % 0.5; Eosinophils % 1.1; HCT 43.1 % (36.0-46.0); HGB 14.5 g/dL (11.2-15.7); Immature Grans % 0.2; Lymphocytes % 37.6; MCH 26.5 pg (27.0-33.0); MCHC 33.6 % (32.0-36.0); MCV 79 fL (80-95); MPV 9.7 fL (8.0-11.0); Monocytes % 5.1; Neutrophils % 55.5; Platelet Count 298 10^3/uL (130-400); RBC 5.48 10^6/uL (3.93-5.22); RDW 13.5 % (11.7-14.6); RDW-SD 38.4 fL; WBC 6.12 10^3/uL (4.4-10.8)
[2022-12-12 10:18] LABS: ALT 18 U/L (14-59); AST 12 U/L (15-37); Albumin 4.1 g/dL (3.4-5.0); Alkaline Phosphatase 69 U/L (46-116); Anion Gap 8.3 mmol/L (3-11); BUN 12 mg/dL (7-18); Bilirubin, Total 1.7 mg/dL (0.2-1.0); CO2 26.7 mmol/L (21.0-32.0); CREATININE 0.8 mg/dL (0.55-1.02); Chloride 107 mmol/L (98-107); Estimated GFR 104.15 (mL/min/1.73m2); Glucose 95 mg/dL (74-106); Lipase 30 U/L (16-77); Potassium 4.4 mmol/L (3.5-5.1); Sodium 142 mmol/L (136-145); Total Protein 8.1 g/dL (6.4-8.2)
== END 2022-12-12 02:26 | disposition home or self-care (01) ==
LOC: LBO 02:25
PROVIDERS: PCP Nurse Practitioner Adult Health; Visit Provider Nurse Practitioner Adult Health
DX: E80.6 Other disorders of bilirubin metabolism (principal); R17 Unspecified jaundice; R11.2 Nausea with vomiting, unspecified; K52.9 Noninfective gastroenteritis and colitis, unspecified; F17.290 Nicotine dependence, other tobacco product, uncomplicated; R79.89 Other specified abnormal findings of blood chemistry
CPT/HCPCS: 36415; 80053; 83690; 85025

== ENCOUNTER 2023-01-27 00:49 | Outpatient (CLI) | payer MEDICAID, SELFPAY ==
--- NOTE | 2023-01-27 07:30 | DI.US_ITS ---
Exam(s) US BREAST LT COMPLETE EXAM: US BREAST LT COMPLETE CLINICAL HISTORY: ?abscess vs. cyst vs. solid?, lt breast lump TECHNIQUE: Ultrasound of the left breast performed using standard protocol. COMPARISON: No exams were available for comparison FINDINGS: No solid or cystic masses, hypoechoic foci, areas of abnormal shadowing, or areas of skin thickening. No evidence of ductal dilatation. IMPRESSION: no sonographically suspicious finding. BI-RADS Category 1 - Negative DATA REPOSITORY:
== END 2023-01-27 01:09 ==
LOC: DI 00:50
PROVIDERS: PCP Nurse Practitioner Adult Health; Visit Provider Nurse Practitioner Family
DX: N63.21 Unspecified lump in the left breast, upper outer quadrant (principal)
CPT/HCPCS: 76642

== ENCOUNTER 2023-01-27 12:06 | Outpatient (CLI) | payer MEDICAID, SELFPAY ==
--- NOTE | 2023-01-27 09:30 | DI.US_ITS ---
Exam(s) US PELVIS TRANSVAGINAL EXAM: US PELVIS TRANSVAGINAL CLINICAL HISTORY: DUB, L sided pelvic pain N93.8 AUB TECHNIQUE: Transabdominal and transvaginal imaging was performed using standard protocol. COMPARISON: No exams were available for comparison FINDINGS: UTERUS: Retroverted 6.7 x 3.9 x 6 cm Endometrium: 7 mm Myometrium: Unremarkable. Cervix: Unremarkable. OVARIES: Right: Cyst or mass: None. Left: Cyst or mass: 1.9 centimeter dominant follicle. DOPPLER: Color: Symmetric and uniform flow to both ovaries. No hyperemia. CUL-DE-SAC: Free fluid: Small amount, physiologic. IMPRESSION: 1. Normal-appearing uterus with endometrial stripe within normal limits. 2. Unremarkable bilateral ovaries. DATA REPOSITORY:
== END 2023-01-27 12:26 ==
LOC: DI 12:08
PROVIDERS: PCP Nurse Practitioner Adult Health; Visit Provider Nurse Practitioner Women's Health
DX: N93.8 Other specified abnormal uterine and vaginal bleeding (principal); R10.2 Pelvic and perineal pain
CPT/HCPCS: 76830; 76856

== ENCOUNTER 2023-03-20 04:49 | Outpatient (CLI) | payer MEDICAID, SELFPAY ==
[2023-03-20 12:13] LABS: ALT 21 U/L (14-59); AST 12 U/L (15-37); Alkaline Phosphatase 74 U/L (46-116); Anion Gap 6.9 mmol/L (3-11); BUN 6 mg/dL (7-18); Bilirubin, Direct 0.2 mg/dL (0.0-0.2); Bilirubin, Total 1.1 mg/dL (0.2-1.0); CO2 30.1 mmol/L (21.0-32.0); CREATININE 0.9 mg/dL (0.55-1.02); Calcium 9.1 mg/dL (8.5-10.1); Chloride 106 mmol/L (98-107); Estimated GFR 90.42 (mL/min/1.73m2); Glucose 93 mg/dL (74-106); Potassium 4.5 mmol/L (3.5-5.1); Sodium 143 mmol/L (136-145); Total Protein 7.6 g/dL (6.4-8.2)
== END 2023-03-20 04:50 | disposition home or self-care (01) ==
PROVIDERS: PCP Nurse Practitioner Adult Health; Visit Provider Nurse Practitioner Adult Health
DX: E80.6 Other disorders of bilirubin metabolism (principal); R11.2 Nausea with vomiting, unspecified; R79.89 Other specified abnormal findings of blood chemistry
CPT/HCPCS: 36415; 80053; 82248

== ENCOUNTER 2023-06-16 18:57 | Emergency (ER) | payer MEDICAID, SELFPAY ==
[2023-06-16 19:00] VITALS: BP 119/84; PULSE 89; RESP 16; TEMP 36.8; O2SAT 97
--- NOTE | 2023-06-16 20:33 | W.ED.GENAD ---
Discharge Plan Disposition Patient Disposition: Home Discharge Details Clinical Impression: Laceration of labia minora Primary Care Provider: Debra Mujica ED Provider: Hailey Mari Home Meds and New Rx's Prescriptions: Continued prenat.vits,kenn,xpn-cwno-drpms tablet 1 tab PO DAILY Qty: 90 6RF nicotine 7 mg/24 hr patch 24 hour 1 patch transdermal Q24H Qty: 30 1RF Rx Instructions: Nicotine cessation nicotine (polacrilex) 2 mg lozenge 2 mg buccal Q4H PRN (Reason: nicotine cravings) Qty: 108 1RF cholecalciferol (vitamin D3) 50 mcg (2,000 unit) capsule 2,000 unit PO DAILY Qty: 90 3RF Rx Instructions: Vit D deficiency Discharge Instructions Additional Instructions: Keep wound clean and dry, after bowel movement and urination, wipe front to back with a baby wipe and apply bacitracin at least 3 times a day, this will likely heal on its own Please return earlier should you have new or worsening complaints Referrals: Debra Mujica, CONSULTANT IN ERGONOMICS AND SAFETY [Primary Care Provider] - Medical Decision Making This 27-year-old female otherwise healthy presents with laceration to her labia, on exam, she has a 1 inch laceration to her labia minora, there is no active bleeding, the site is clean Tetanus is up-to-date There is no extension to the urethra or sphincter, she was given option of bacitracin and observation versus suture placement, she prefers bacitracin and observation, return precautions reviewed and patient expressed understanding, no active bleeding throughout this encounter HPI General Date/Time Provider Initiated Documentation: 06/16/23 19:46. HPI Narrative: This 27-year-old female presents with report of labial tear after sitting down on a glass on the toilet accidentally. She thinks she has a laceration to her labia. She denies chance of , took a test today. States she presents secondary to some persistent oozing from the site. Denies any additional complaints. Tetanus up-to-date. Related Data Home Medications Medication Instructions Recorded Confirmed prenat.vits,kenn,emt-qtju-ddzop 1 tab PO DAILY #90 tabs 11/08/18 06/16/23 cholecalciferol (vitamin D3) 50 2,000 unit PO DAILY #90 caps 10/18/22 06/16/23 mcg (2,000 unit) capsule nicotine (polacrilex) 2 mg buccal 2 mg buccal Q4H PRN nicotine 11/24/22 06/16/23 lozenge cravings #108 ea nicotine 7 mg/24 hr daily 1 patch transdermal Q24H #30 ea 11/24/22 06/16/23 transdermal patch Previous Rx's Medication Instructions Recorded prenat.vits,kenn,osb-nlyy-gpxxl 1 tab PO DAILY #90 tabs 11/08/18 cholecalciferol (vitamin D3) 50 2,000 unit PO DAILY #90 caps 10/18/22 mcg (2,000 unit) capsule nicotine (polacrilex) 2 mg buccal 2 mg buccal Q4H PRN nicotine 11/24/22 lozenge cravings #108 ea nicotine 7 mg/24 hr daily 1 patch transdermal Q24H #30 ea 11/24/22 transdermal patch Allergies Allergy/AdvReac Type Severity Reaction Status Date / Time venom-wasp Allergy Unknown Hives Verified 06/16/23 19:04 lamotrigine [From Lamictal] AdvReac Skin Rash Verified 06/16/23 19:04 General Stated 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: MARKLOGIC 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 OLIVE: 4 PFSH All Active Problems (Updated 06/16/23 @ 19:48 by OVIDIO Guevara) Laceration of labia minora (Acute) Vaping nicotine dependence, tobacco product (Acute) Elevated bilirubin (Acute) Hypothyroidism (Chronic) diagnosed age 19 after she gained a lot of weight with one of her bipolar medication; 2020: normal TSH off Levothyroxine for months as pt stopped; monitor Vitamin D deficiency (Acute ~09/2022) BMI 30.0-30.9,adult (Acute ~2020) Bipolar disorder (Chronic ~2020) [facility] Psychiatry manages Depressive disorder (Chronic ~2020) [facility] psychiatry Anxiety (Chronic ~2020) [facility] psychiatry Medical History Breast lump Cholestasis during , antepartum Insomnia Irritable bowel syndrome Seasonal affective disorder Sore throat Vitamin B12 deficiency (non anemic) Vulvar edema Surgical History History of removal of ovarian cyst Family History Paternal Grandfather Hypertension Father Hypercholesterolemia Hypertension Mother Thyroid disorder Hypertension Hypercholesterolemia Immunodeficiency disorder Diabetes Maternal Grandmother Thyroid disorder Heart disease Paternal Grandmother Diabetes Depression Sister Acute Crohn's disease Social History Smoking/Tobacco Use Status: Current every day Tobacco Type: e-cigarettes Tobacco: How many years used: 10 Smokeless tobacco user: other (vaping) Quit status: has quit before Smoking risk assessment performed?: Yes Alcohol Intake: current Alcohol Intake frequency: a few times a month Details: mixed drinks (rum with mountain dew) Substance use type: does not use Adopted: No Caregiver/Support person: No Foster care: No Household members: spouse, children and other Details: Christy Cook D-Ellie Housing: house Number of Children: 2 Communication Needs: None and Corrective Lenses Education Level: high school Do you need help understanding health information?: Never 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 Pets and animals: Yes (2) Pets and animals: cat(s) Sexually active: Yes Do you think of yourself as: straight/heterosexual Current gender identity: female What is your relationship status?: How often do you talk on the phone with friends or family?: three or more times per week How often do you get together with friends or relatives?: once per week How often do you attend orthodoxy or cheondoism services?: 4 or more times per year Do you belong to any clubs or organized social groups?: no Panel score (0-1 are the most socially isolated patients): 3 What type of physical activity do you participate in: none Radha/Denominational: Yazidi Special radha needs: No Seatbelt use: always Helmet use: Yes Drive intox or ride w/intox delivery motorcycle driver: No Working smoke detector in home: Yes Fire extinguisher in home: No Carbon monox detector in home: Yes Firearms in home: No Do you feel safe at home: Yes Do you feel safe in your relationship?: Yes Female Reproductive History Menstrual control method: none and natural family planning History History 2 Para 2 Hx # Term Pregnancies 2 Multiple births 0 Hx # Pregnancies 0 Ectopic pregnancies 0 AB induced 0 Hx Number of Living Children 2 AB spontaneous 0 Past Pregnancies Del. Date GA/Weeks # Preg Succ Route Wgt Sex Labor Lgth Anesthesia Location Prov Complic 07/16/19 40 No vaginal 3770.487 g Female 3 hrs 58 min [facility] 05/21/21 37 No vaginal 3484.156 g Female [facility] Delivery Date: 07/16/19 Last Updated by: Brooke Morales M.D. Induced due to Gestational HTN; Mendez, oxytocin, right labial laceration, repaired, didn't like nitrous. [facility] Delivery Date: 05/21/21 Last Updated by: Brooke Morales M.D. cholestasis in 3rd trimester. IOL @ [facility]. D. Mis Dillard. Course Vital Signs Vital signs: Vital Signs Temperature 36.8 C 06/16/23 19:00 Pulse 89 06/16/23 19:00 Respiratory Rate 16 06/16/23 19:00 Blood Pressure 119/84 06/16/23 19:00 Pulse Oximetry 97 06/16/23 19:00 Temperature 36.8 C 06/16/23 19:00 Temperature Source Temporal Artery Scan 06/16/23 19:00 Pulse 89 06/16/23 19:00 Respiratory Rate 16 06/16/23 19:00 Respiratory Effort Normal, Non-Labored 06/16/23 19:59 Blood Pressure 119/84 06/16/23 19:00 Blood Pressure Position Sitting 06/16/23 19:00 Pulse Oximetry 97 06/16/23 19:00 Oxygen Delivery Method Room Air 06/16/23 19:00 Oxygen Flow Rate 0 06/16/23 19:00 Pain Level 0 06/16/23 19:59 PAWSS Have you Been Recently Intoxicated or Drunk Within the Last 30 days?: No Have you Ever Experienced Previous Episodes of Alcohol Withdrawal?: No Have you ever Experienced Withdrawal Seizures?: No Have you ever Experienced Delirium Tremens(DT)s?: No Have you ever undergone Alcohol Rehabilitation Treatment (i.e, inpt ot outpatient treatment programs)?: No Have you ever Experienced Blackouts?: No Have you ever Combined Alcohol with other Downers within the last 90 days?: No Have you ever Combined Alcohol with any other Substance of Abuse during the last 90 days?: No Positive Blood Alcohol level on Presentation? [PCS.BAL]: No Evidence of Increased Autonomic Activity (i.e. HR>120, tremor, sweating, agitation, nausea)?: No Result: 0
== END 2023-06-16 20:01 | disposition home or self-care (01) ==
PROVIDERS: Emergency Provider Physician Assistant; PCP Nurse Practitioner Adult Health
DX: S31.41XA Laceration without foreign body of vagina and vulva, initial encounter (principal); W23.1XXA Caught, crushed, jammed, or pinched between stationary objects, initial encounter
CPT/HCPCS: 99282; 99283

== ENCOUNTER 2023-06-26 03:22 | Outpatient (CLI) | payer MEDICAID, SELFPAY ==
[2023-06-26 16:44] LABS: Bilirubin, Total 1.6 mg/dL (0.2-1.0)
== END 2023-06-26 03:23 | disposition home or self-care (01) ==
LOC: LBO 03:22
PROVIDERS: PCP Nurse Practitioner Adult Health; Visit Provider Nurse Practitioner Adult Health
DX: R17 Unspecified jaundice (principal)
CPT/HCPCS: 36415; 82247

== ENCOUNTER 2023-07-12 13:23 | Outpatient (CLI) | payer MEDICAID, SELFPAY ==
[2023-07-12 10:45] LABS: HCG Quant, Pregnancy 19481 mIU/mL (1-3)
== END 2023-07-12 13:24 | disposition home or self-care (01) ==
LOC: LBO 13:23
PROVIDERS: PCP Nurse Practitioner Adult Health; Visit Provider Advanced Practice Midwife
DX: O20.0 Threatened abortion (principal); Z32.01 Encounter for pregnancy test, result positive
CPT/HCPCS: 36415; 84702

== ENCOUNTER 2023-07-14 03:17 | Outpatient (CLI) | payer MEDICAID, SELFPAY ==
[2023-07-14 13:19] LABS: HCG Quant, Pregnancy 28628 mIU/mL (1-3)
== END 2023-07-14 03:18 | disposition home or self-care (01) ==
LOC: LBO 03:17
PROVIDERS: PCP Nurse Practitioner Adult Health; Visit Provider Advanced Practice Midwife
DX: O20.0 Threatened abortion (principal)
CPT/HCPCS: 36415; 84702